=== PATIENT | female | born 1935 | race Caucasian/White ===

== ENCOUNTER 2020-10-29 09:33 | Inpatient (IN) ==
--- NOTE | 2020-10-29 09:57 | Emergency Department Note ---
SOB HPI General Chief Complaint: Shortness of Breath/Dyspnea Time Seen by Provider: 10/29/20 09:48 Source: patient, family, RN notes reviewed, old records reviewed and other ([facility] called [employer]) Mode of arrival: ambulatory Limitations: no limitations History of Present Illness HPI Narrative: Narrative: Very pleasant 85-year-old female complaining of increasing shortness of breath x10 days. She states that she is having extreme dyspnea on exertion and having difficulty walking to the car and she is now sleeping in a sitting upright position as she becomes very short of breath when she lays flat. She denies any fevers or chills any cough or any chest pain. States that 3 days prior to arrival she was attempting to ambulate and had a syncopal event where she fell down loss of consciousness is not known but she complains of swelling and pain to her left lower extremity. Shows noted on physical exam to have bilateral peripheral edema left greater than right she stated the swelling in her lower extremities approximately a week ago. Patient was seen at [facility] and the provider felt that the patient requires a higher level of care and requested her to come to the emergency department for further evaluation. MD Complaint: shortness of breath Onset (ago): day(s) (10) Context: occurred during exertion Severity: moderate Consistency/Duration: constant Improves with: rest and upright position Worsens with: lying flat, exertion and movement Associated symptoms: Reports orthopnea, lower extremity pain, palpitations and syncope (3 days [employer]); Denies chest pain, pain with inspiration, fever, cough, wheezing, sputum production, polyuria, polydipsia, parasthesias, carpopedal spasm, hemoptysis, diaphoresis, nausea/vomiting, abdominal pain, rash and sense of impending doom Treatment prior to arrival: none Related Data Home oxygen amount: none Home Medications Medication Instructions Recorded Confirmed No Known Home Meds 10/29/20 10/29/20 Allergies Allergy/AdvReac Type Severity Reaction Status Date / Time Penicillins Allergy Mild Unknown Verified 10/29/20 09:11 Tetanus Vaccines and Toxoid Allergy Mild Seizure Verified 10/29/20 09:11 Cephalosporins AdvReac Intermediate Diarrhea Verified 10/29/20 10:31 clindamycin AdvReac Intermediate Diarrhea Verified 10/29/20 10:31 Sulfa (Sulfonamide AdvReac Intermediate Other Verified 10/29/20 10:31 Antibiotics) ammonia AdvReac Unknown Unknown Verified 10/29/20 10:06 antipyrine AdvReac Unknown Unknown Verified 10/29/20 10:04 aztreonam AdvReac Unknown Unknown Verified 10/29/20 10:07 Bee Pollen AdvReac Unknown Unknown Verified 10/29/20 10:04 Carbapenems AdvReac Unknown Unknown Verified 10/29/20 10:04 celecoxib AdvReac Unknown Unknown Verified 10/29/20 10:04 dapsone AdvReac Unknown Unknown Verified 10/29/20 10:04 fomepizole AdvReac Unknown Unknown Verified 10/29/20 10:04 furosemide [From Lasix] AdvReac Unknown Unknown Verified 10/29/20 10:11 Influenza Virus Vaccines AdvReac Unknown Unknown Verified 10/29/20 10:04 iodine AdvReac Unknown Unknown Verified 10/29/20 10:04 Macrolide Antibiotics AdvReac Unknown Unknown Verified 10/29/20 10:11 morphine AdvReac Unknown Unknown Verified 10/29/20 10:04 NSAIDS (Non-Steroidal AdvReac Unknown Unknown Verified 10/29/20 10:04 Anti-Inflamma pimecrolimus AdvReac Unknown Unknown Verified 10/29/20 10:04 rofecoxib AdvReac Unknown Unknown Verified 10/29/20 10:04 royal jelly AdvReac Unknown Unknown Verified 10/29/20 10:04 saccharin AdvReac Unknown Unknown Verified 10/29/20 10:04 salicylates AdvReac Unknown Unknown Verified 10/29/20 10:04 sirolimus AdvReac Unknown Unknown Verified 10/29/20 10:04 Sulfinpyrazone AdvReac Unknown Unknown Verified 10/29/20 10:04 Sulfonylureas AdvReac Unknown Unknown Verified 10/29/20 10:04 sumatriptan AdvReac Unknown Unknown Verified 10/29/20 10:12 tacrolimus AdvReac Unknown Unknown Verified 10/29/20 10:04 Thiazides AdvReac Unknown Unknown Verified 10/29/20 10:04 thyroid, pork AdvReac Unknown Unknown Verified 10/29/20 10:04 "Statins" Allergy Mild GI Uncoded 10/29/20 09:11 Vaccines Allergy Mild Swelling Uncoded 10/29/20 09:11 Review of Systems ROS ROS Narrative: Narrative: Constitutional: Reports weakness and weight change; Denies fever and chills Eyes: Denies vision change ENT ED: Denies throat pain Cardiovascular: Denies chest pain Respiratory: Reports shortness of breath Gastrointestinal: Denies abdominal pain Genitourinary: Denies dysuria Musculoskeletal: Reports joint swelling and joint pain; Denies back pain Integumentary: Denies rash Neurological: Denies headache Psychiatric: Denies depression Endocrine: Denies fatigue Hematological/Lymphatic: Denies easy bruising Allergic/Immunologic: Denies urticaria PFSH Narrative Patient History Narrative: Narrative: Medical/Surgical/Family History All Active Problems (Updated 10/29/20 @ 11:30 by Irvin Ny MD) Pleural effusion (Acute) Swelling (Acute) Shortness of breath (Acute) Congestive heart failure (Acute) Medical History Congestive heart failure Shortness of breath Swelling Social History Smoking Status: Never smoker Exam Narrative Narrative: Narrative: General Limitations: no limitations General appearance: Present alert and in no apparent distress Head Head: Present atraumatic and normocephalic Eye Eye: Present normal appearance, PERRL and EOMI ENT ENT: Present normal exam and mucous membranes moist Neck Neck: Present full ROM and other (JVD) Chest Chest: Present normal inspection; Absent tenderness Respiratory Respiratory: Present rales/crackles and decreased breath sounds (LLL); Absent respiratory distress Cardiovascular Cardiovascular: Present regular rate, normal rhythm and systolic murmur Adbominal Abdominal: Present soft; Absent distention, tenderness, guarding and rebound Extremities Extremities: Present full ROM, tenderness, pedal edema, pretibial edema and other (LLE more swollen and tender than RLE) Back Back: Present normal inspection; Absent CVA tenderness (R) and CVA tenderness (L) Neurological Neurological: Present alert and oriented X3 Psychiatric Psychiatric: Present normal affect and normal mood Skin Skin: Present warm (WNL); Absent rash Course Vital Signs Vital signs: Vital Signs Pulse Oximetry (%) 88 L 10/29/20 09:33 Temperature 98.5 F 10/29/20 09:41 Pulse Rate 88 10/29/20 12:21 Respiratory Rate 27 H 10/29/20 12:21 Blood Pressure 171/83 10/29/20 12:21 Pulse Oximetry (%) 99 10/29/20 12:21 [facility] Narrative Medical decision making narrative: Narrative: 85-year-old female with hypoxia with exertion orthopnea PND and peripheral edema complaining of shortness of breath. Patient also has swelling to bilateral lower extremities left greater than right. Differential diagnosis includes congestive heart failure, PE, DVT, ankle fracture, ankle sprain, ACS, pneumonia, pneumothorax, pleural effusion. Medical Records Medical records reviewed: Yes I reviewed the patient's medical records. Lab Data Lab results reviewed: Yes I reviewed the patient's lab results. Result diagrams: 10/29/20 10:05 10/29/20 10:05 Labs: Lab Results 10/29/20 10/29/20 10/29/20 Range/Units 10:05 10:05 10:05 WBC 9.0 (4.5-11.0) K/mcL RBC 4.92 (4.00-5.20) M/mcL Hgb 14.3 (12.0-15.0) g/dL Hct 44.2 (36.0-48.0) % MCV 89.8 (80.0-100.0) fL MCH 29.1 (26.0-34.0) pg MCHC 32.4 (31.0-36.0) g/dL RDW 12.6 (11.5-14.5) % Plt Count 313 (140-440) K/mcL MPV 9.0 (7.4-10.4) fL Neut % (Auto) 76.6 (38.0-78.0) % Lymph % (Auto) 10.3 L (15.0-49.0) % [place] % (Auto) 11.4 (1.0-12.0) % Eos % (Auto) 1.0 (0.0-7.0) % Baso % (Auto) 0.7 (0.0-2.0) % Lymph # (Auto) 0.93 L (1.50-4.80) K/mcL [place] # (Auto) 1.03 H (0.10-0.90) K/mcL Eos # (Auto) 0.09 (0.00-0.70) K/mcL Baso # (Auto) 0.06 (0.00-0.20) K/mcL Absolute Neutrophils 6.89 (1.80-8.00) K/mcL Sodium 131 L (133-145) mmol/L Potassium 3.9 (3.3-5.1) mmol/L Chloride 99 (96-108) mmol/L Carbon Dioxide 26 (22-30) mmol/L Anion Gap 6.0 L (8.0-16.0) BUN 15 (8-23) mg/dL Creatinine 1.0 (0.6-1.1) mg/dL GFR Calculation 52 Glucose 199 H (70-105) mg/dL Calcium 9.8 (8.6-10.4) mg/dL Total Bilirubin 0.3 (0.1-1.0) mg/dL AST 15 (<32) U/L ALT 10 (<40) U/L Alkaline Phosphatase 88 (39-117) U/L Troponin T < 0.01 (<0.03) ng/mL NT-Pro-B Natriuret Pep 438.2 (<450.0) pg/mL Total Protein 7.0 (5.9-8.4) gm/dL Albumin 3.7 (3.2-5.2) gm/dL Globulin 3.3 (2.2-3.7) gm/dL Albumin/Globulin Ratio 1.1 (1.0-2.3) Urine Color Urine Appearance (Clear) Urine pH (5.0-9.0) Ur Specific [place] (1.000-1.035) Urine Protein (Negative) mg/dL Urine Glucose (UA) (Negative) mg/dL Urine Ketones (Negative) mg/dL Urine Occult Blood (Negative) mg/dL Urine Nitrate (Negative) Urine Bilirubin (Negative) mg/dL Urine Urobilinogen mg/dL Ur Leukocyte Esterase (Negative) /ug Ur Culture Indicated? 10/29/20 Range/Units 10:50 WBC (4.5-11.0) K/mcL RBC (4.00-5.20) M/mcL Hgb (12.0-15.0) g/dL Hct (36.0-48.0) % MCV (80.0-100.0) fL MCH (26.0-34.0) pg MCHC (31.0-36.0) g/dL RDW (11.5-14.5) % Plt Count (140-440) K/mcL MPV (7.4-10.4) fL Neut % (Auto) (38.0-78.0) % Lymph % (Auto) (15.0-49.0) % [place] % (Auto) (1.0-12.0) % Eos % (Auto) (0.0-7.0) % Baso % (Auto) (0.0-2.0) % Lymph # (Auto) (1.50-4.80) K/mcL [place] # (Auto) (0.10-0.90) K/mcL Eos # (Auto) (0.00-0.70) K/mcL Baso # (Auto) (0.00-0.20) K/mcL Absolute Neutrophils (1.80-8.00) K/mcL Sodium (133-145) mmol/L Potassium (3.3-5.1) mmol/L Chloride (96-108) mmol/L Carbon Dioxide (22-30) mmol/L Anion Gap (8.0-16.0) BUN (8-23) mg/dL Creatinine (0.6-1.1) mg/dL GFR Calculation Glucose (70-105) mg/dL Calcium (8.6-10.4) mg/dL Total Bilirubin (0.1-1.0) mg/dL AST (<32) U/L ALT (<40) U/L Alkaline Phosphatase (39-117) U/L Troponin T (<0.03) ng/mL NT-Pro-B Natriuret Pep (<450.0) pg/mL Total Protein (5.9-8.4) gm/dL Albumin (3.2-5.2) gm/dL Globulin (2.2-3.7) gm/dL Albumin/Globulin Ratio (1.0-2.3) Urine Color Yellow Urine Appearance Clear (Clear) Urine pH 6.0 (5.0-9.0) Ur Specific [place] 1.009 (1.000-1.035) Urine Protein Negative (Negative) mg/dL Urine Glucose (UA) 50 A (Negative) mg/dL Urine Ketones Negative (Negative) mg/dL Urine Occult Blood Negative (Negative) mg/dL Urine Nitrate Negative (Negative) Urine Bilirubin Negative (Negative) mg/dL Urine Urobilinogen Negative mg/dL Ur Leukocyte Esterase Negative (Negative) /ug Ur Culture Indicated? No ED POC Tests ED POC Tests: MERLINE - SARS Antigen Negative Radiology Data Radiology results reviewed: Yes I reviewed the patient's radiology results. Radiology results narrative: Chest x-ray with large pleural effusion on the left side. Negative Doppler of the left lower extremity negative x-ray of the left ankle EKG Data EKG #1: EKG attestation: Yes I reviewed and interpreted this EKG. EKG shows normal: sinus rhythm Rate: normal (92) [place]/QRS: normal Heart block present: None ST segment elevation in: None ST segment depression in: None Q waves: III, v1 and v2 T wave inversions noted in: v1 When compared to previous EKG there are: previous EKG unavailable Interpretation: nonspecific ST-T wave changes Pulse Oximetry Data Pulse Ox %: 88 Interpretation: 88% on room air with exertion this is hypoxic for this patient. Discharge Plan Patient/Caregiver Discharge Instructions Pt seen by CHIEF COUNSEL/PA only: No Clinical Impression: Pleural effusion, Shortness of breath Patient Disposition: Xfer As Inpt ([facility]) Follow up with: No,PCP [Primary Care Provider] - Prescriptions: No Action No Known Home Meds RF: 0
--- NOTE | 2020-10-29 10:38 | XRay Report ---
HISTORY: Short of breath FINDINGS: There is a large left-sided pleural effusion causing atelectasis of the left lower lobe and inferior portion of the lingula. There is a small right-sided pleural effusion. There is a vague hazy infiltrate above the right diaphragm. The heart is largely obscured by the consolidation in the left thorax. These are all new findings since prior x-ray done on 12/20/12. There is a clip in the right lateral chest wall below the axilla, possibly in the breast. IMPRESSION: Large left-sided pleural effusion causing atelectasis Interpreted and Authenticated by: Gabino Lindquist 10/29/20
--- NOTE | 2020-10-29 10:39 | XRay Report ---
HISTORY: Left ankle pain and swelling after a fall FINDINGS: Large amount of soft tissue swelling surrounds the ankle. There is no fracture or dislocation. Ankle joint space is normal in width and there is no arthritis in the joint. There are large calcaneal spurs. Numerous calcified phleboliths are present in the lower calf. IMPRESSION: soft tissue swelling and no fracture Interpreted and Authenticated by: Gabino Lindquist 10/29/20
[2020-10-29 10:56] LABS: Basophils # (Auto) 0.06 K/mcL (0.00-0.20); Basophils % (Auto) 0.7 % (0.0-2.0); Eosinophils # (Auto) 0.09 K/mcL (0.00-0.70); Hematocrit 44.2 % (36.0-48.0); Hemoglobin 14.3 g/dL (12.0-15.0); Lymphocytes # (Auto) 0.93 K/mcL (1.50-4.80); Lymphocytes % (Auto) 10.3 % (15.0-49.0); Mean Cell Volume 89.8 fL (80.0-100.0); Mean Corpuscular HGB Conc 32.4 g/dL (31.0-36.0); Monocytes # (Auto) 1.03 K/mcL (0.10-0.90); Monocytes % (Auto) 11.4 % (1.0-12.0); Neutrophils % (Auto) 76.6 % (38.0-78.0); Platelet Count 313 K/mcL (140-440); RBC 4.92 M/mcL (4.00-5.20); Red Cell Distribution Width 12.6 % (11.5-14.5)
--- NOTE | 2020-10-29 11:01 | Ultrasound Report ---
History: Left leg pain and swelling, shortness of breath FINDINGS: There is normal augmentation and compressibility of the deep veins and saphenous vein from the groin to the upper calf. There is significant edema in the subcutaneous tissues in the mid and lower calf which limits our ability to visualize the small peripheral calf veins. Doppler shows normal waveform patterns. The visualized portions of the calf veins are normal. IMPRESSION: No evidence of deep venous thrombosis. However, the lower calf is difficult to evaluate due to subcutaneous edema Interpreted and Authenticated by: Gabino Lindquist 10/29/20
[2020-10-29 11:18] LABS: proBNP 438.2 pg/mL (<450.0)
[2020-10-29 11:19] LABS: ALT/SGPT 10 U/L (<40); AST/SGOT 15 U/L (<32); Albumin 3.7 gm/dL (3.2-5.2); Albumin/Globulin Ratio 1.1 (1.0-2.3); Alkaline Phosphatase 88 U/L (39-117); Bilirubin,Total 0.3 mg/dL (0.1-1.0); Blood Urea Nitrogen 15 mg/dL (8-23); Calcium 9.8 mg/dL (8.6-10.4); Carbon Dioxide 26 mmol/L (22-30); Chloride 99 mmol/L (96-108); Globulin 3.3 gm/dL (2.2-3.7); Glomerular Filtration Rate 52; Glucose 199 mg/dL (70-105)
[2020-10-29] MEDS ORDERED: BUMETANIDE 0.25 MG/ML VIAL IV ONE (11:26)
[2020-10-29 12:09] LABS: Appearance,Urine CLEAR (Clear); Bilirubin,Urine Negative (Negative); Color,Urine YELLOW; Culture Indicated,Urine No; Glucose,Urine (UA) 50 mg/dL (Negative); Ketones,Urine Negative (Negative); Leukocyte Esterase,Urine Negative /ug (Negative); Nitrate,Urine Negative (Negative); Protein,Urine Negative (Negative); Specific Gravity,Urine 1.009 (1.000-1.035); Urine Blood Negative (Negative); Urobilinogen,Urine Negative
[2020-10-29 12:45] LABS: Prothrombin Time 13.9 sec (11.9-14.5)
[2020-10-29] MEDS ORDERED: ACETAMINOPHEN 325 MG TABLET PO PRN ×2 (12:46→15:18)
[2020-10-29] MEDS ORDERED: traZODone HCL 50 MG TABLET PO PRN ×2 (12:46→15:18)
[2020-10-29] MEDS ORDERED: ONDANSETRON 4 MG/2 ML VIAL IV PRN ×2 (12:46→15:18)
[2020-10-29] MEDS ORDERED: hydrALAZINE 20 MG/ML VIAL IV PRN ×2 (12:53→15:18)
[2020-10-29] MEDS ORDERED: DEXTROSE 50% 50 ML VIAL IV PRN ×2 (12:53→15:18)
[2020-10-29] MEDS ORDERED: DEXTROSE 31 GM ORAL.SUSP PO PRN ×2 (12:53→15:18)
--- NOTE | 2020-10-29 13:01 | Internal Med History&Physical ---
HPI History of Present Illness Patient information: Note initiated : 10/29/20 at 12:54 pm Service Date, if different from initiated Date: [] Patient: Ails Vogel 85 y/o F admitted on for Shortness of breath. Chief Complaint: [shortness of breath, orthopnea] History of present illness: Ms. Vogel is a 85 year old F history of type 2 diabetes mellitus, diet controlled, right breast cancer status post surgical resections, presented with 1 week history of orthopnea and shortness of breath. There was no prior similar history. Over the past week, patient has developed acute onset, gradually worsening orthopnea to the point that she had to sleep on a recliner. She is also developing shortness of breath. In addition, she has been noticing swelling of her bilateral lower extremities, left greater than right, up to at least the knee left foot. She has also been gaining between 5 to 10 pounds unintentionally over the set period of time. She denies any cough, sputum productions, or respiratory wheezings. Patient denies any fever, shaking chills, or diaphoresis. Only to her symptoms, she decided to come to our ED for further evaluation and treatment. Vital signs significant for borderline elevated blood pressure hospitalist tachypnea with rate of breathing due to mid 20s beats per minute. Rest of vital signs within normal limits. Labs significant for lack of leukocytosis, as well as elevated BNP to the 400s. Chest x-ray significant for lack of any parenchymal infiltrates, as well as a large left sided pleural effusions. Venous Doppler ultrasound bilateral lower extremities showing absence of any DVT. Constitutional Constitutional: Absent chills, excessive sweating, fatigue, fever(s) and weakness EENT Eyes: Absent blurry vision, change in vision, loss of vision and other visual disturbances Ears: Absent decreased hearing and tinnitus Nose, mouth and throat: Absent abnormal hearing, dry mouth, headache(s), nasal congestion and sore throat Cardiovascular Cardiovascular: Present edema (right>left legs edema up to knees ); Absent chest pain, chest pain at rest, irregular heart rhythm and palpatations Respiratory Respiratory: Present dyspnea on exertion; Absent cough, dyspnea and wheezing Additional comments: orthopnea shortness of breath Gastrointestinal Gastrointestinal: Absent abdominal pain, constipation, diarrhea, nausea and vomiting Musculoskeletal Musculoskeletal: Absent back pain, deformity, limited range of motion, muscle cramps, muscle weakness and numbness Additional comments: Left>right leg edema Integumentary Integumentary: Absent lesions, rash and wounds Neurological Neurological: Absent focal weakness, headache(s) and numbness Psychiatric Psychiatric: Absent anxiety, depression and hallucinations PFSH PFSH All Active Problems (Updated 10/29/20 @ 13:13 by Maynor Hardin MD) Pleural effusion, left (Acute) Hyponatremia (Acute) Essential (primary) hypertension (Acute) Type 2 diabetes mellitus (Acute) CHF exacerbation (Acute) Pleural effusion (Acute) Swelling (Acute) Shortness of breath (Acute) Congestive heart failure (Acute) Medical History Congestive heart failure Shortness of breath Swelling MEDS/ALLERGIES Home Medications and Allergies Home Medications Medication Instructions Recorded Confirmed Type No Known Home Meds 10/29/20 10/29/20 History Allergies Allergy/AdvReac Type Severity Reaction Status Date / Time Penicillins Allergy Mild Unknown Verified 10/29/20 09:11 Tetanus Vaccines and Toxoid Allergy Mild Seizure Verified 10/29/20 09:11 Cephalosporins AdvReac Intermediate Diarrhea Verified 10/29/20 10:31 clindamycin AdvReac Intermediate Diarrhea Verified 10/29/20 10:31 Sulfa (Sulfonamide AdvReac Intermediate Other Verified 10/29/20 10:31 Antibiotics) ammonia AdvReac Unknown Unknown Verified 10/29/20 10:06 antipyrine AdvReac Unknown Unknown Verified 10/29/20 10:04 aztreonam AdvReac Unknown Unknown Verified 10/29/20 10:07 Bee Pollen AdvReac Unknown Unknown Verified 10/29/20 10:04 Carbapenems AdvReac Unknown Unknown Verified 10/29/20 10:04 celecoxib AdvReac Unknown Unknown Verified 10/29/20 10:04 dapsone AdvReac Unknown Unknown Verified 10/29/20 10:04 fomepizole AdvReac Unknown Unknown Verified 10/29/20 10:04 furosemide [From Lasix] AdvReac Unknown Unknown Verified 10/29/20 10:11 Influenza Virus Vaccines AdvReac Unknown Unknown Verified 10/29/20 10:04 iodine AdvReac Unknown Unknown Verified 10/29/20 10:04 Macrolide Antibiotics AdvReac Unknown Unknown Verified 10/29/20 10:11 morphine AdvReac Unknown Unknown Verified 10/29/20 10:04 NSAIDS (Non-Steroidal AdvReac Unknown Unknown Verified 10/29/20 10:04 Anti-Inflamma pimecrolimus AdvReac Unknown Unknown Verified 10/29/20 10:04 rofecoxib AdvReac Unknown Unknown Verified 10/29/20 10:04 royal jelly AdvReac Unknown Unknown Verified 10/29/20 10:04 saccharin AdvReac Unknown Unknown Verified 10/29/20 10:04 salicylates AdvReac Unknown Unknown Verified 10/29/20 10:04 sirolimus AdvReac Unknown Unknown Verified 10/29/20 10:04 Sulfinpyrazone AdvReac Unknown Unknown Verified 10/29/20 10:04 Sulfonylureas AdvReac Unknown Unknown Verified 10/29/20 10:04 sumatriptan AdvReac Unknown Unknown Verified 10/29/20 10:12 tacrolimus AdvReac Unknown Unknown Verified 10/29/20 10:04 Thiazides AdvReac Unknown Unknown Verified 10/29/20 10:04 thyroid, pork AdvReac Unknown Unknown Verified 10/29/20 10:04 "Statins" Allergy Mild GI Uncoded 10/29/20 09:11 Vaccines Allergy Mild Swelling Uncoded 10/29/20 09:11 EXAM Constitutional Vitals: Temp Pulse Resp BP Pulse Ox 36.9 C 88 27 H 171/83 99 10/29/20 09:41 10/29/20 12:21 10/29/20 12:21 10/29/20 12:21 10/29/20 12:21 General appearance: cooperative and no acute distress Head Head exam: Present atraumatic and normocephalic Eye Eye exam: Present EOMI and PERRL ENT ENT exam: Present mucous membranes moist, normal exam and normal external ear exam Additional comments: Nasal cannula in place Neck Neck exam: Present normal inspection; Absent lymphadenopathy, tenderness and thyromegaly Respiratory Respiratory exam: Present decreased breath sounds (left lung base); Absent accessory muscle use, respiratory distress and wheezes Cardiovascular Cardiovascular exam: Present normal rate and rhythm; Absent JVD GI/Abdominal GI/Abdominal exam: Present normal bowel sounds and soft; Absent organomegaly and tenderness Extremities Exam Extremities exam: Present full ROM, normal capillary refill, normal inspection and pedal edema; Absent tenderness Neurological Exam Neurological exam: Present alert, CN II-XII intact and oriented X3; Absent motor sensory deficit Psychiatric Psychiatric exam: Present normal affect and normal mood; Absent anxious and depressed Skin Skin exam: Present dry and intact DATA Data Completed and Pending Labs: Labs from last 24 hours 10/29/20 10/29/20 10/29/20 10:50 10:05 10:05 WBC RBC Hgb Hct MCV MCH MCHC RDW Plt Count MPV Neut % (Auto) Lymph % (Auto) [place] % (Auto) Eos % (Auto) Baso % (Auto) Lymph # (Auto) [place] # (Auto) Eos # (Auto) Baso # (Auto) Absolute Neutrophils PT 13.9 INR 1.0 Sodium Potassium Chloride Carbon Dioxide Anion Gap BUN Creatinine GFR Calculation Glucose Calcium Total Bilirubin AST ALT Alkaline Phosphatase Troponin T < 0.01 NT-Pro-B Natriuret Pep Total Protein Albumin Globulin Albumin/Globulin Ratio Urine Color Yellow Urine Appearance Clear Urine pH 6.0 Ur Specific [place] 1.009 Urine Protein Negative Urine Glucose (UA) 50 A Urine Ketones Negative Urine Occult Blood Negative Urine Nitrate Negative Urine Bilirubin Negative Urine Urobilinogen Negative Ur Leukocyte Esterase Negative Ur Culture Indicated? No 10/29/20 10/29/20 10:05 10:05 WBC 9.0 RBC 4.92 Hgb 14.3 Hct 44.2 MCV 89.8 MCH 29.1 MCHC 32.4 RDW 12.6 Plt Count 313 MPV 9.0 Neut % (Auto) 76.6 Lymph % (Auto) 10.3 L [place] % (Auto) 11.4 Eos % (Auto) 1.0 Baso % (Auto) 0.7 Lymph # (Auto) 0.93 L [place] # (Auto) 1.03 H Eos # (Auto) 0.09 Baso # (Auto) 0.06 Absolute Neutrophils 6.89 PT INR Sodium 131 L Potassium 3.9 Chloride 99 Carbon Dioxide 26 Anion Gap 6.0 L BUN 15 Creatinine 1.0 GFR Calculation 52 Glucose 199 H Calcium 9.8 Total Bilirubin 0.3 AST 15 ALT 10 Alkaline Phosphatase 88 Troponin T NT-Pro-B Natriuret Pep 438.2 Total Protein 7.0 Albumin 3.7 Globulin 3.3 Albumin/Globulin Ratio 1.1 Urine Color Urine Appearance Urine pH Ur Specific [place] Urine Protein Urine Glucose (UA) Urine Ketones Urine Occult Blood Urine Nitrate Urine Bilirubin Urine Urobilinogen Ur Leukocyte Esterase Ur Culture Indicated? A/P Assessment and plan (1) CHF exacerbation: Status: Acute (2) Type 2 diabetes mellitus: Status: Acute (3) Essential (primary) hypertension: Status: Acute (4) Hyponatremia: Status: Acute (5) Pleural effusion, left: Status: Acute Narrative A/P Narrative: Assessment and Plans: 1. CHF with exacerbation: Admit to inpatient med surg 2D echocardiogram fluid restriction 2L/day Daily weigh Intake and output Lasix 20mg IV BID Lisinopril 10mg PO daily Hold beta jb at exacerbation phase of CHF Supplemental oxygen titrate to achieve O2 sat >=92% Saline lock 2. Left large pleural effusion: INR Diagnostic and therapeutic left thoracentesis Fluid analysis: LDH Glucose Albumin Total protein Cytology Gram stain and culture Cell count and diff Repeat CXR in AM to make sure resolution 3. T2DM: HgA1c Hold oral hypoglycmics Low dose sliding scale insulin AC HS Accu Chek AC HS Hypoglycemia protocol Diabetic diet 4. Essential HTN: Lasix 20mg IV BID Lisinopril 10mg PO daily Hold beta jb at exacerbation phase of CHF Hydralazine 10mg IV q4hr PRN SBP>=180 and or DBP>=110 5. Hyponatremia: Saline lock Repeat CMP in the AM to trend serum sodium level PT OT evaluation and treatment SCDs Time Spent With Patient Time: Total time spent is greater than 50% in coordination of care (as documented) at patient's floor/unit and/or counseling patient:
[2020-10-29] MEDS ORDERED: 0.9 % SODIUM CHLORIDE 10 ML SYRINGE IV SCH (14:00)
[2020-10-29 15:41] LABS: Hemoglobin A1C 7.2 % Hgb (4.0-6.0)
[2020-10-29] MEDS ORDERED: FUROSEMIDE 20 MG/2 ML VIAL IV SCH ×2 (16:00→21:00)
[2020-10-29] MEDS: 0.9 % SODIUM CHLORIDE 10 ML SYRINGE IV SCH ×2 (16:18→21:08)
[2020-10-29] MEDS: INSULIN LISPRO 1 UNIT/0.01 ML UNIT SQ SCH ×2 (16:25→21:08)
[2020-10-29] MEDS ORDERED: INSULIN LISPRO 1 UNIT/0.01 ML UNIT SQ SCH (17:00)
--- NOTE | 2020-10-29 18:13 | XRay Report ---
HISTORY: Post left-sided thoracentesis FINDINGS: There is no pneumothorax following the preceding left-sided thoracentesis. There is still a moderate amount of residual pleural fluid in the left thorax but much of it has been drained. This has allowed for partial re-aeration of the lingula and left lower lobe. Small subpulmonic pleural effusion is present on the right. IMPRESSION: No complication following left-sided thoracentesis Interpreted and Authenticated by: Gabino Lindquist 10/29/20
--- NOTE | 2020-10-29 18:14 | Ultrasound Report ---
CLINICAL INFORMATION: Left-sided pleural effusion TECHNIQUE: The procedure and risks were explained and the patient consented. The skin over the left side of the back was prepped with ChloraPrep then anesthetized with 1% lidocaine. Using ultrasound guidance a multi sidehole drainage catheter was inserted. 850 cc of blood-tinged pleural fluid was removed. The fluid stopped draining spontaneously. There is still residual fluid in the chest. She began coughing and the procedure was then terminated. Some of the fluid was sent to laboratory for analysis. IMPRESSION: Successful left-sided thoracentesis removing 850 cc of fluid Interpreted and Authenticated by: Gabino Lindquist 10/29/20
[2020-10-29 19:23] LABS: Total Protein,Pleural Fluid 4.4 gm/dL
[2020-10-29 20:31] LABS: Appearance,Pleural Fluid Cloudy; Color,Pleural Fluid Orange; Lymphocytes,Pleural Fluid 60 %; Mesothelial,Pleural Fluid 19 %; Monocytes,Pleural Fluid 20 %; Neutrophils,Pleural Fluid 1 %; Nucleated Cells,Pleural Fld 1219 /cumm
[2020-10-29] MEDS ORDERED: SENNOSIDES 1 TABLET PO SCH (21:00)
[2020-10-29] MEDS ORDERED: DOCUSATE SODIUM 100 MG CAPSULE PO SCH (21:00)
[2020-10-29] MEDS: DOCUSATE SODIUM 100 MG CAPSULE PO SCH (21:08)
[2020-10-29] MEDS: SENNOSIDES 1 TABLET PO SCH (21:08)
[2020-10-29] MEDS: BUMETANIDE 0.25 MG/ML VIAL IV SCH (21:09)
[2020-10-30] MEDS: 0.9 % SODIUM CHLORIDE 10 ML SYRINGE IV SCH ×3 (06:03→20:14)
[2020-10-30] MEDS: INSULIN LISPRO 1 UNIT/0.01 ML UNIT SQ SCH ×4 (07:15→20:13)
[2020-10-30 08:24] LABS: Basophils # (Auto) 0.05 K/mcL (0.00-0.20); Basophils % (Auto) 0.5 % (0.0-2.0); Eosinophils # (Auto) 0.13 K/mcL (0.00-0.70); Eosinophils % (Auto) 1.3 % (0.0-7.0); Hematocrit 42.5 % (36.0-48.0); Hemoglobin 13.4 g/dL (12.0-15.0); Lymphocytes # (Auto) 1.14 K/mcL (1.50-4.80); Lymphocytes % (Auto) 11.6 % (15.0-49.0); Mean Cell Volume 90.4 fL (80.0-100.0); Mean Corpuscular HGB Conc 31.5 g/dL (31.0-36.0); Mean Platelet Volume 9.2 fL (7.4-10.4); Monocytes # (Auto) 1.43 K/mcL (0.10-0.90); Monocytes % (Auto) 14.6 % (1.0-12.0); Platelet Count 323 K/mcL (140-440); Red Cell Distribution Width 12.7 % (11.5-14.5); WBC 9.8 K/mcL (4.5-11.0)
[2020-10-30] MEDS ORDERED: LISINOPRIL 10 MG TABLET PO SCH (09:00)
[2020-10-30 09:07] LABS: ALT/SGPT 8 U/L (<40); AST/SGOT 14 U/L (<32); Albumin 3.2 gm/dL (3.2-5.2); Albumin/Globulin Ratio 1.1 (1.0-2.3); Alkaline Phosphatase 76 U/L (39-117); Bilirubin,Total 0.3 mg/dL (0.1-1.0); Blood Urea Nitrogen 18 mg/dL (8-23); Calcium 9.7 mg/dL (8.6-10.4); Carbon Dioxide 30 mmol/L (22-30); Chloride 100 mmol/L (96-108); Globulin 2.8 gm/dL (2.2-3.7); Glomerular Filtration Rate 38; Glucose 170 mg/dL (70-105)
[2020-10-30] MEDS: BUMETANIDE 0.25 MG/ML VIAL IV SCH (09:48)
[2020-10-30] MEDS: LISINOPRIL 10 MG TABLET PO SCH (09:48)
[2020-10-30] MEDS: DOCUSATE SODIUM 100 MG CAPSULE PO SCH ×2 (09:48→20:13)
--- NOTE | 2020-10-30 09:54 | XRay Report ---
HISTORY: Short of breath, follow-up left-sided pleural effusion FINDINGS: There is a stable moderate-sized residual left-sided pleural effusion following yesterday's thoracentesis. There is partial atelectasis of the lingula and left lower lobes. Left upper lobe is clear. There is no pneumothorax. Right lung is clear. There is a small right-sided pleural effusion. Comparison with the prior postthoracentesis chest x-ray done on 10/29/20 shows no change. IMPRESSION: Stable residual left-sided pleural effusion with partial atelectasis in the lingula and left lower lobe. Interpreted and Authenticated by: Gabino Lindquist 10/30/20
--- NOTE | 2020-10-30 17:28 | Internal Med Progress Note ---
SUBJECTIVE Subjective Patient information: Note initiated : 10/30/20 at 5:23 pm Service Date, if different from initiated Date: [] Patient: Alis Vogel 85 y/o F admitted on 10/29/20 for Shortness of breath. Chief Complaint: [CHF exacerbation and left pleural effusion] Overnight: s/p left thoracentesis with 850ml pleural fluid removed. Been on 2L/min supplemental oxygen via nasal cannula. Subjective: mild SOB. Denies cough, wheezing, or sputum production. Denies chest pain. Denies fever or chills or sweating. Constitutional Vitals: Vital Signs Temp Pulse Resp BP Pulse Ox 36.7 C 93 H 20 116/63 96 10/30/20 12:00 10/30/20 12:00 10/30/20 12:00 10/30/20 12:00 10/30/20 12:00 Period Temp Pulse Resp BP Sys/Campbell Pulse Ox Last 24 Hr 36.6 C-36.7 C 85-110 20-24 116-140/63-75 92-96 Intake and Output 10/30/20 10/30/20 10/30/20 05:59 13:59 21:59 Intake Total 250 200 600 Output Total 650 925 150 Balance -400 -725 450 Weight 82.781 kg Patient Weight 10/31/20 05:59 Weight 82.781 kg Intake & Output: Intake & Output 10/30/20 10/30/20 10/30/20 05:59 13:59 21:59 Intake Total 250 200 600 Output Total 650 925 150 Balance -400 -725 450 Weight 82.781 kg Intake: Oral 250 200 600 Output: Void Amount 650 925 150 Other: Urine Appearance Clear Clear Clear Urine Color Bright Yellow Straw Straw Urine Odor Normal Normal Stool Size Small Stool Color Brown Stool Consistency Soft # Bowel Movements 1 General appearance: cooperative and no acute distress Head Head exam: Present atraumatic and normocephalic Eye Eye exam: Present EOMI and PERRL ENT ENT exam: Present mucous membranes moist, normal exam and normal external ear exam Additional comments: Nasal cannula in place. Neck Neck exam: Present normal inspection; Absent lymphadenopathy, tenderness and thyromegaly Respiratory Respiratory exam: Absent accessory muscle use, respiratory distress and wheezes Additional comments: Slightly decreased breath sound in left lung base Crackles in rest of the lung king. Cardiovascular Cardiovascular exam: Present normal rate and rhythm; Absent JVD GI/Abdominal GI/Abdominal exam: Present normal bowel sounds and soft; Absent organomegaly and tenderness Extremities Exam Extremities exam: Present full ROM, normal capillary refill, normal inspection and pedal edema; Absent tenderness Additional comments: 2+ pitting edema bilateral lower extremities up to knees. Neurological Exam Neurological exam: Present alert, CN II-XII intact and oriented X3; Absent motor sensory deficit Psychiatric Psychiatric exam: Present normal affect and normal mood; Absent anxious and depressed Skin Skin exam: Present dry and intact OBJ DATA Labs CBC & Chem 7: 10/30/20 06:00 10/30/20 06:00 Labs: Abnormal Lab Results 10/30/20 10/30/20 10/29/20 06:00 06:00 17:45 Lymph % (Auto) 11.6 L [place] % (Auto) 14.6 H Lymph # (Auto) 1.14 L [place] # (Auto) 1.43 H Sodium Anion Gap 7.0 L Creatinine 1.3 H Glucose 170 H Hemoglobin A1c Urine Glucose (UA) Pleural LDH 191 H 10/29/20 10/29/20 10/29/20 10:50 10:05 10:05 Lymph % (Auto) [place] % (Auto) Lymph # (Auto) [place] # (Auto) Sodium 131 L Anion Gap 6.0 L Creatinine Glucose 199 H Hemoglobin A1c 7.2 H Urine Glucose (UA) 50 A Pleural LDH 10/29/20 10:05 Lymph % (Auto) 10.3 L [place] % (Auto) Lymph # (Auto) 0.93 L [place] # (Auto) 1.03 H Sodium Anion Gap Creatinine Glucose Hemoglobin A1c Urine Glucose (UA) Pleural LDH Meds: Medications Acetaminophen (Acetaminophen 325 Mg Tablet) 650 mg PO Q6HP PRN; Protocol PRN Reason: Per Pain Protocol/Fever > 101 Dextrose (Dextrose 50% 50 Ml Vial) 0 ml IV UD PRN PRN Reason: Hypoglycemia Diagnostic Test (Pha) (Accu-Chek 1 Each Strip) 1 each FS ACHS [facility] Last Admin: 10/30/20 16:33 Dose: 1 each Documented by: Docusate Sodium (Docusate Sodium 100 Mg Capsule) 100 mg PO BID [facility] Last Admin: 10/30/20 09:48 Dose: Not Given Documented by: Glucose (Dextrose 31 Gm Oral.Susp) 15 gm PO PRN PRN PRN Reason: Hypoglycemia Hydralazine HCl (Hydralazine 20 Mg/Ml Vial) 10 mg IV Q4-6HP PRN PRN Reason: Hypertension Insulin Human Lispro (Insulin Lispro 1 Unit/0.01 Ml Unit) 0 unit SQ ACHS [facility]; Protocol Last Admin: 10/30/20 16:34 Dose: Not Given Documented by: Lisinopril (Lisinopril 10 Mg Tablet) 10 mg PO DAILY [facility] Last Admin: 10/30/20 09:48 Dose: Not Given Documented by: Ondansetron HCl (Ondansetron 4 Mg/2 Ml Vial) 4 mg IV Q6HP PRN PRN Reason: Nausea And Vomiting Senna (Sennosides 1 Tablet) 2 tab PO HS [facility] Last Admin: 10/29/20 21:08 Dose: Not Given Documented by: Sodium Chloride (0.9 % Sodium Chloride 10 Ml Syringe) 10 ml IV Q8 [facility] Last Admin: 10/30/20 15:01 Dose: 10 ml Documented by: Trazodone HCl (Trazodone Hcl 50 Mg Tablet) 50 mg PO HSP PRN PRN Reason: Insomnia A/P Assessment and plan (1) CHF exacerbation: Status: Acute (2) Type 2 diabetes mellitus: Status: Acute (3) Essential (primary) hypertension: Status: Acute (4) Hyponatremia: Status: Acute (5) Pleural effusion, left: Status: Acute Narrative A/P Narrative: Assessment and Plans: 1. CHF with exacerbation: Stays in inpatient med surg 2D echocardiogram fluid restriction 2L/day Daily weigh Intake and output Lasix 20mg IV BID Lisinopril 10mg PO daily Hold beta jb at exacerbation phase of CHF Supplemental oxygen titrate to achieve O2 sat >=92% Saline lock 2. Left large pleural effusion: s/p Diagnostic and therapeutic left thoracentesis with 850cc pleural fluid removed Fluid analysis: LDH Glucose Albumin Total protein Cytology Gram stain and culture Cell count and diff Repeat CXR this morning still show some left sided pleural effusion 3. T2DM: HgA1c Hold oral hypoglycmics Low dose sliding scale insulin AC HS Accu Chek AC HS Hypoglycemia protocol Diabetic diet 4. Essential HTN: Lasix 20mg IV BID Lisinopril 10mg PO daily Hold beta jb at exacerbation phase of CHF Hydralazine 10mg IV q4hr PRN SBP>=180 and or DBP>=110 5. Hyponatremia: RESOLVED Saline lock Repeat CMP in the AM to trend serum sodium level PT OT evaluation and treatment SCDs Time Spent With Patient Time: Total time spent is greater than 50% in coordination of care (as documented) at patient's floor/unit and/or counseling patient:
[2020-10-30] MEDS: SENNOSIDES 1 TABLET PO SCH (20:13)
[2020-10-31] MEDS: 0.9 % SODIUM CHLORIDE 10 ML SYRINGE IV SCH (05:30)
[2020-10-31] MEDS: INSULIN LISPRO 1 UNIT/0.01 ML UNIT SQ SCH ×2 (07:30→11:44)
[2020-10-31 07:54] LABS: Basophils # (Auto) 0.07 K/mcL (0.00-0.20); Basophils % (Auto) 0.8 % (0.0-2.0); Eosinophils % (Auto) 2.4 % (0.0-7.0); Hematocrit 43.1 % (36.0-48.0); Hemoglobin 13.6 g/dL (12.0-15.0); Lymphocytes # (Auto) 1.34 K/mcL (1.50-4.80); Lymphocytes % (Auto) 16.2 % (15.0-49.0); Mean Cell Volume 89.8 fL (80.0-100.0); Mean Corpuscular HGB Conc 31.6 g/dL (31.0-36.0); Mean Platelet Volume 9.2 fL (7.4-10.4); Monocytes # (Auto) 1.19 K/mcL (0.10-0.90); Monocytes % (Auto) 14.4 % (1.0-12.0); Neutrophils % (Auto) 66.2 % (38.0-78.0); Platelet Count 332 K/mcL (140-440); Red Cell Distribution Width 12.8 % (11.5-14.5); WBC 8.3 K/mcL (4.5-11.0)
[2020-10-31 08:22] LABS: ALT/SGPT 9 U/L (<40); AST/SGOT 15 U/L (<32); Albumin 3.4 gm/dL (3.2-5.2); Albumin/Globulin Ratio 1.2 (1.0-2.3); Alkaline Phosphatase 77 U/L (39-117); Bilirubin,Total 0.4 mg/dL (0.1-1.0); Blood Urea Nitrogen 26 mg/dL (8-23); Calcium 9.5 mg/dL (8.6-10.4); Carbon Dioxide 27 mmol/L (22-30); Chloride 100 mmol/L (96-108); Globulin 2.9 gm/dL (2.2-3.7); Glomerular Filtration Rate 41; Glucose 140 mg/dL (70-105)
[2020-10-31] MEDS: LISINOPRIL 10 MG TABLET PO SCH (08:39)
[2020-10-31] MEDS: DOCUSATE SODIUM 100 MG CAPSULE PO SCH (08:39)
--- NOTE | 2020-10-31 12:03 | Discharge Summary ---
Discharge Provider Provider Patient information: Note initiated : 10/31/20 at 11:58 am Service Date, if different from initiated Date: [] Patient: Alis Vogel 85 y/o F admitted on 10/29/20 for Shortness of breath. Chief Complaint: [] Date of admission: 10/29/20 14:45 Discharge date: 10/31/20 Primary care physician: PCP No Consults: 10/29/20 Consult to Physician [CONS] Stat Comment: Consulting Provider: Maynor Hardin Reason For Exam: Physician to Consult Consult to Physician [CONS] Stat Comment: Consulting Provider: [facility] Reason For Exam: Physician to Consult Consult to Physician [CONS] Stat Comment: left diagnotic and therapeutic thoracentesis Consulting Provider: Gabino Lindquist Reason For Exam: Physician to Consult Discharge Meds Discharge Medications Home Medications carvedilol [Coreg] 3.125 mg PO BID #30 tab 10/31/20 [Rx Last Taken Unknown] hydrochlorothiazide 12.5 mg PO QDAY #30 tab 10/31/20 [Rx Last Taken Unknown] lisinopril 10 mg PO DAILY #30 tab 10/31/20 [Rx Last Taken Unknown] COURSE Hospital Course Hospital course: Patient was admitted on 10/29/20 for CHF exacerbation as well as large symptomatic left pleural effusion. For CHF, supplemental oxygen was provided, and Bumex IV, Lisinopril, were also started. 2D echocardiogram was performed and showed good systolic function with LVEF 65% without evidence of diastolic dysfunction. By 10/31/20 patient was able to tolerate room air. Thoracentesis was also performed and 850cc of pleural fluid was removed from left pleural space. Pleural fluid analysis was performed and no signs of bacterial infection was noted. Final results of the cytology of the pleural fluid still pending at time of discharged. Decision was made to discharge patient home with Rx Coreg, Lisinopril, Hydrochlorothiazide sent to pharmacy. 1 week PCP follow up appointment made for her. All questions were answered prior to patient being physically discharged. Discharge diagnosis: CHF exacerbation; large left pleural effusion Time Spent with Patient Time attestation: Total time spent providing and/or coordinating discharge services: Time spent: Less than 30 minutes EXAM Constitutional Vitals: Temp Pulse Resp BP Pulse Ox 37.2 C 126 H 17 112/78 92 10/31/20 07:38 10/31/20 07:38 10/31/20 07:38 10/31/20 07:38 10/31/20 08:50 Discharge Data Data Completed and Pending Labs on day of discharge: Labs from last 24 hours 10/31/20 10/31/20 05:19 05:19 WBC 8.3 RBC 4.80 Hgb 13.6 Hct 43.1 MCV 89.8 MCH 28.3 MCHC 31.6 RDW 12.8 Plt Count 332 MPV 9.2 Neut % (Auto) 66.2 Lymph % (Auto) 16.2 [place] % (Auto) 14.4 H Eos % (Auto) 2.4 Baso % (Auto) 0.8 Lymph # (Auto) 1.34 L [place] # (Auto) 1.19 H Eos # (Auto) 0.20 Baso # (Auto) 0.07 Absolute Neutrophils 5.46 Sodium 135 Potassium 4.2 Chloride 100 Carbon Dioxide 27 Anion Gap 8.0 BUN 26 H Creatinine 1.2 H GFR Calculation 41 Glucose 140 H Calcium 9.5 Total Bilirubin 0.4 AST 15 ALT 9 Alkaline Phosphatase 77 Total Protein 6.3 Albumin 3.4 Globulin 2.9 Albumin/Globulin Ratio 1.2 Discharge Plan Patient/Caregiver Discharge Instructions Activity: as per physical therapy Diet: Regular Diet Activity Restrictions/Additional Instructions: 1 week PCP follow up appointment Prescriptions: New lisinopril 10 mg Tablet 10 mg PO DAILY Qty: 30 RF: 1 hydrochlorothiazide 12.5 mg tablet 12.5 mg PO QDAY Qty: 30 RF: 1 carvedilol [Coreg] 3.125 mg tablet 3.125 mg PO BID Qty: 30 RF: 1 Follow Up Plan Follow up with: Erum,PCP [Primary Care Provider] - Patient Disposition: Home Health Service Rehab Potential: Good Overall status at discharge: patient is back to baseline Discharge Orders: Discharge Order (Routine); Ordered 10/31/20 Ordered By: Maynor Hardin
--- NOTE | 2020-11-05 13:09 | Non-GYN Cytology Report ---
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 NG Comments The patient's recent HPI note indicating a history of breast cancer is reviewed. 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 The differential diagnosis for CK7 positive carcinomas also includes breast, lung, upper gastrointestinal and pancreatobiliary primaries and metastases from these sites cannot be entirely excluded. Please see microscopic description for full details. Clinical and radiologic correlation is required. NG Micro Description Cytologic preparations of one ThinPrep slide, one pap stained cytospin slide, one DifQuik stained cytospin slide, one [place] Giemsa stain cytospin slide and one cell block preparation reviewed. Preparations show single and small clusters of malignant cells with marked nuclear pleomorphism, prominent nucleoli and vacuolated cytoplasm. There is a background of chronic inflammatory and reactive mesothelial cells. Immunohistochemical studies are performed with adequate technical control. Cells of interest: malignant cells. Pancytokeratin: Positive. CK7: Positive. MOC31: Positive. BerEP4: Positive. ER: Weak positive. PAX-8: Patchy positive. WT1: Patchy positive. CK 5/6: Patchy positive. WI: Negative. p53: Negative. Mammaglobin: Negative. GATA3: Negative. GCDFP15: Negative. TTF-1: Negative. Napsin: Negative. CK20: Negative. CDX2: Negative. RCC: Negative. p63: Negative. Interpretation: CK 7+ carcinoma. NG Gross Description Received 25 mL red fresh fluid. IHC Disclaimer Some of the tests reported may not have been cleared or approved by the U.S. Food Drug Administration (FDA). However, the FDA has determined that such clearance or approval is not necessary. Pursuant to the requirements of CLIA, this laboratory has established and verified the accuracy and precision of all tests, and additional information about these tests is available upon request. All technical controls are adequate. Electronically Signed Concepción Rdz MD, FCAP Electronically Signed 11/05/2020 13:07
== END 2020-10-31 13:10 | disposition home health service (06) | DRG 292 ==
LOC: ED 09:33 → MEDSUR 14:45
PROVIDERS: ADMIT Internal Medicine; ATTEND Internal Medicine

== ENCOUNTER 2020-12-05 08:41 | Inpatient (IN) ==
--- NOTE | 2020-12-05 09:06 | Emergency Department Note ---
HPI General Chief complaint: Shortness of Breath/Dyspnea Stated complaint: SOB Time Seen by Provider: 12/05/20 08:52 Source: patient Mode of arrival: ambulatory Limitations: no limitations History of Present Illness HPI Narrative: Narrative: Presents emergency department for evaluation of increased shortness breath. She has history of CHF and prior pleural effusion. She reports increased difficulty breathing gradually worsening with time. Increased lower extremity swelling. Unable to lay flat due to shortness of breath. Denies chest pain. She has a cough. No fever. No other complaints. Related Data Home Medications Medication Instructions Recorded Confirmed cholecalciferol (vitamin D3) 25 25 mcg PO QDAY 11/05/20 11/06/20 mcg (1,000 unit) chewable tablet glutamine 500 mg tablet 4.5 g PO BID tab 11/05/20 11/06/20 Previous Rx's Medication Instructions Recorded carvedilol [Coreg] 3.125 mg PO BID #30 tab 10/31/20 hydrochlorothiazide 12.5 mg PO QDAY #30 tab 10/31/20 lisinopril 10 mg PO DAILY #30 tab 10/31/20 Allergies Allergy/AdvReac Type Severity Reaction Status Date / Time Penicillins Allergy Mild Unknown Verified 11/06/20 08:39 Tetanus Vaccines and Toxoid Allergy Mild Seizure Verified 11/06/20 08:39 Cephalosporins AdvReac Intermediate Diarrhea Verified 11/06/20 08:39 clindamycin AdvReac Intermediate Diarrhea Verified 11/06/20 08:39 Sulfa (Sulfonamide AdvReac Intermediate Other Verified 11/06/20 08:39 Antibiotics) ammonia AdvReac Unknown Unknown Verified 11/06/20 08:39 antipyrine AdvReac Unknown Unknown Verified 11/06/20 08:39 aztreonam AdvReac Unknown Unknown Verified 11/06/20 08:39 Bee Pollen AdvReac Unknown Unknown Verified 11/06/20 08:39 Carbapenems AdvReac Unknown Unknown Verified 11/06/20 08:39 celecoxib AdvReac Unknown Unknown Verified 11/06/20 08:39 dapsone AdvReac Unknown Unknown Verified 11/06/20 08:39 fomepizole AdvReac Unknown Unknown Verified 11/06/20 08:39 furosemide [From Lasix] AdvReac Unknown Unknown Verified 11/06/20 08:39 Influenza Virus Vaccines AdvReac Unknown Unknown Verified 11/06/20 08:39 iodine AdvReac Unknown Unknown Verified 11/06/20 08:39 Macrolide Antibiotics AdvReac Unknown Unknown Verified 11/06/20 08:39 morphine AdvReac Unknown Unknown Verified 11/06/20 08:39 NSAIDS (Non-Steroidal AdvReac Unknown Unknown Verified 11/06/20 08:39 Anti-Inflamma pimecrolimus AdvReac Unknown Unknown Verified 11/06/20 08:39 rofecoxib AdvReac Unknown Unknown Verified 11/06/20 08:39 royal jelly AdvReac Unknown Unknown Verified 11/06/20 08:39 saccharin AdvReac Unknown Unknown Verified 11/06/20 08:39 salicylates AdvReac Unknown Unknown Verified 11/06/20 08:39 sirolimus AdvReac Unknown Unknown Verified 11/06/20 08:39 Sulfinpyrazone AdvReac Unknown Unknown Verified 11/06/20 08:39 Sulfonylureas AdvReac Unknown Unknown Verified 11/06/20 08:39 sumatriptan AdvReac Unknown Unknown Verified 11/06/20 08:39 tacrolimus AdvReac Unknown Unknown Verified 11/06/20 08:39 Thiazides AdvReac Unknown Unknown Verified 11/06/20 08:39 thyroid, pork AdvReac Unknown Unknown Verified 11/06/20 08:39 "Statins" Allergy Mild GI Uncoded 11/06/20 08:39 Vaccines Allergy Mild Swelling Uncoded 11/06/20 08:39 Review of Systems ROS ROS Narrative: Narrative: As above, all other system reviewed and negative. PFSH Narrative Patient History Narrative: Narrative: Reviewed Medical/Surgical/Family History All Active Problems (Updated 12/05/20 @ 14:59 by Thierry Black MD) Respiratory failure (Acute) Pleural effusion (Acute) CHF (congestive heart failure) (Acute) Counseling regarding advance care planning and goals of care (Acute) Transition of care (Acute) Metastasis (Acute) Essential (primary) hypertension (Acute) Breast cancer (Acute) Osteopenia (Acute) Osteoporosis (Acute) Hyperthyroidism (Acute) Acute respiratory failure (Acute) Pleural effusion, left (Acute) Hyponatremia (Acute) Type 2 diabetes mellitus (Acute) CHF exacerbation (Acute) Pleural effusion (Acute) Swelling (Acute) Shortness of breath (Acute) Congestive heart failure (Acute) Medical History Breast cancer Congestive heart failure Essential (primary) hypertension Hyperthyroidism Osteopenia Osteoporosis Shortness of breath Swelling Surgical History History of appendectomy History of cataract surgery Both eyes History of tonsillectomy Family History Mother Colon cancer Dementia Diabetes Sister Dementia Diabetes Brother Diabetes Social History Smoking Status: Never smoker Alcohol Intake Frequency: does not drink Substance Use: does not use Exam Narrative Narrative: Narrative: Vital signs reviewed please see nursing documentation. General Limitations: no limitations Head Head: Present atraumatic and normocephalic Eye Eye: Present normal appearance, PERRL and EOMI ENT ENT: Present normal exam Neck Neck: Present normal inspection Respiratory Respiratory: Absent respiratory distress Extremities Extremities: Present pedal edema and pretibial edema Neurological Neurological: Present alert, oriented X3 and CN II-XII intact; Absent motor sensory deficit Psychiatric Psychiatric: Present normal affect and normal mood Skin Skin: Present warm (WNL) Course Vital Signs Vital signs: Vital Signs Temperature 97.6 F 12/05/20 08:42 Pulse Rate 96 H 12/05/20 08:42 Respiratory Rate 20 12/05/20 08:42 Blood Pressure 165/81 12/05/20 08:42 Pulse Oximetry (%) 69 L 12/05/20 08:42 Temperature 97.6 F 12/05/20 08:42 Pulse Rate 80 12/05/20 14:32 Respiratory Rate 21 12/05/20 14:32 Blood Pressure 129/80 12/05/20 14:32 Pulse Oximetry (%) 95 12/05/20 14:32 [facility] MDM Narrative Medical decision making narrative: Narrative: EKG shows sinus rhythm, no acute ischemic changes, intervals otherwise normal. I spoke with on-call hospitalist and the patient's oncologist. Case reviewed in detail over the phone. Patient will be admitted to the hospitalist service. Discussed findings with the patient and the family. Their questions were answered. They are agreeable with the plan. 1 mg Bumex IV was ordered at the request of the hospitalist. Lab Data Result diagrams: 12/05/20 09:00 12/05/20 09:00 Labs: Lab Results 12/05/20 12/05/20 12/05/20 Range/Units 09:00 09:00 09:00 WBC 13.8 H (4.5-11.0) K/mcL RBC 4.50 (4.00-5.20) M/mcL Hgb 12.9 (12.0-15.0) g/dL Hct 39.2 (36.0-48.0) % MCV 87.1 (80.0-100.0) fL MCH 28.7 (26.0-34.0) pg MCHC 32.9 (31.0-36.0) g/dL RDW 12.6 (11.5-14.5) % Plt Count 431 (140-440) K/mcL MPV 8.5 (7.4-10.4) fL Neut % (Auto) 83.2 H (38.0-78.0) % Lymph % (Auto) 3.9 L (15.0-49.0) % [place] % (Auto) 12.1 H (1.0-12.0) % Eos % (Auto) 0.4 (0.0-7.0) % Baso % (Auto) 0.4 (0.0-2.0) % Lymph # (Auto) 0.54 L (1.50-4.80) K/mcL [place] # (Auto) 1.66 H (0.10-0.90) K/mcL Eos # (Auto) 0.06 (0.00-0.70) K/mcL Baso # (Auto) 0.05 (0.00-0.20) K/mcL Absolute Neutrophils 11.46 H (1.80-8.00) K/mcL PT (11.9-14.5) sec INR (0.9-1.1) APTT (20.0-37.0) sec Sodium 126 L (133-145) mmol/L Potassium 4.5 (3.3-5.1) mmol/L Chloride 89 L (96-108) mmol/L Carbon Dioxide 23 (22-30) mmol/L Anion Gap 14.0 (8.0-16.0) BUN 28 H (8-23) mg/dL Creatinine 1.1 (0.6-1.1) mg/dL GFR Calculation 46 Glucose 404 H (70-105) mg/dL Calcium 9.7 (8.6-10.4) mg/dL Total Bilirubin 0.3 (0.1-1.0) mg/dL AST 22 (<32) U/L ALT 18 (<40) U/L Alkaline Phosphatase 102 (39-117) U/L Troponin T < 0.01 (<0.03) ng/mL NT-Pro-B Natriuret Pep 576.0 H (<450.0) pg/mL Total Protein 6.7 (5.9-8.4) gm/dL Albumin 3.3 (3.2-5.2) gm/dL Globulin 3.4 (2.2-3.7) gm/dL Albumin/Globulin Ratio 1.0 (1.0-2.3) Urine Color Urine Appearance (Clear) Urine pH (5.0-9.0) Ur Specific [place] (1.000-1.035) Urine Protein (Negative) mg/dL Urine Glucose (UA) (Negative) mg/dL Urine Ketones (Negative) mg/dL Urine Occult Blood (Negative) mg/dL Urine Nitrate (Negative) Urine Bilirubin (Negative) mg/dL Urine Urobilinogen mg/dL Ur Leukocyte Esterase (Negative) /ug Urine RBC (0-3) /hpf Urine WBC (0-4) /hpf Ur Squamous Epith Cells (0-4) /hpf Ur Transition Epith Cell (0-2) /hpf Urine Bacteria (0) /hpf Hyaline Casts (0-2) /lph Urine Mucus (None) /hpf Ur Culture Indicated? 12/05/20 12/05/20 Range/Units 10:40 14:02 WBC (4.5-11.0) K/mcL RBC (4.00-5.20) M/mcL Hgb (12.0-15.0) g/dL Hct (36.0-48.0) % MCV (80.0-100.0) fL MCH (26.0-34.0) pg MCHC (31.0-36.0) g/dL RDW (11.5-14.5) % Plt Count (140-440) K/mcL MPV (7.4-10.4) fL Neut % (Auto) (38.0-78.0) % Lymph % (Auto) (15.0-49.0) % [place] % (Auto) (1.0-12.0) % Eos % (Auto) (0.0-7.0) % Baso % (Auto) (0.0-2.0) % Lymph # (Auto) (1.50-4.80) K/mcL [place] # (Auto) (0.10-0.90) K/mcL Eos # (Auto) (0.00-0.70) K/mcL Baso # (Auto) (0.00-0.20) K/mcL Absolute Neutrophils (1.80-8.00) K/mcL PT 14.7 H (11.9-14.5) sec INR 1.1 (0.9-1.1) APTT 27.7 (20.0-37.0) sec Sodium (133-145) mmol/L Potassium (3.3-5.1) mmol/L Chloride (96-108) mmol/L Carbon Dioxide (22-30) mmol/L Anion Gap (8.0-16.0) BUN (8-23) mg/dL Creatinine (0.6-1.1) mg/dL GFR Calculation Glucose (70-105) mg/dL Calcium (8.6-10.4) mg/dL Total Bilirubin (0.1-1.0) mg/dL AST (<32) U/L ALT (<40) U/L Alkaline Phosphatase (39-117) U/L Troponin T (<0.03) ng/mL NT-Pro-B Natriuret Pep (<450.0) pg/mL Total Protein (5.9-8.4) gm/dL Albumin (3.2-5.2) gm/dL Globulin (2.2-3.7) gm/dL Albumin/Globulin Ratio (1.0-2.3) Urine Color Yellow Urine Appearance Clear (Clear) Urine pH 5.0 (5.0-9.0) Ur Specific [place] 1.015 (1.000-1.035) Urine Protein Negative (Negative) mg/dL Urine Glucose (UA) >=500 A (Negative) mg/dL Urine Ketones Negative (Negative) mg/dL Urine Occult Blood Negative (Negative) mg/dL Urine Nitrate Negative (Negative) Urine Bilirubin Negative (Negative) mg/dL Urine Urobilinogen Negative mg/dL Ur Leukocyte Esterase 250 A (Negative) /ug Urine RBC 1 (0-3) /hpf Urine WBC 15 H (0-4) /hpf Ur Squamous Epith Cells < 1 (0-4) /hpf Ur Transition Epith Cell < 1 (0-2) /hpf Urine Bacteria None (0) /hpf Hyaline Casts 1 (0-2) /lph Urine Mucus Few A (None) /hpf Ur Culture Indicated? Yes ED POC Tests ED POC Tests: MERLINE - SARS Antigen Negative Discharge Plan Patient/Caregiver Discharge Instructions Pt seen by [facility]P OPERATIONS/PA only: No Clinical Impression: Respiratory failure, Pleural effusion, CHF (congestive heart failure) Patient Disposition: Home, Self-Care Follow up with: Uzair Cordova MD [Primary Care Provider] - Prescriptions: No Action lisinopril 10 mg Tablet 10 mg PO DAILY Qty: 30 RF: 1 hydrochlorothiazide 12.5 mg tablet 12.5 mg PO QDAY Qty: 30 RF: 1 carvedilol [Coreg] 3.125 mg tablet 3.125 mg PO BID Qty: 30 RF: 1 L-Glutamine 500 mg tablet 4.5 g PO BID RF: 0 cholecalciferol (vitamin D3) [Vitamin D3] 25 mcg (1,000 unit) tablet,chewable 25 mcg PO QDAY RF: 0
--- NOTE | 2020-12-05 09:24 | XRay Report ---
INDICATION: sob TECHNIQUE: AP portable upright chest x-ray COMPARISON: None FINDINGS: There are moderate to large bilateral pleural effusions. Left pleural effusion has increased since 10/30/2020. There was slight blunting of the right costophrenic angle on 10/30/2020 indicating a very small effusion. This is increased significantly. Heart size is not assessed due to large pleural effusions. There is probable cardiomegaly. Vascularity in the upper lobes is prominent consistent with pulmonary congestion. There is peribronchial thickening which may indicate interstitial edema. No focal consolidation in either upper lobe. No evidence for pneumonia. No discrete mass. IMPRESSION: 1. Moderate to large bilateral pleural effusions, increased since 10/30/2020 2. Findings consistent with pulmonary congestion and possible interstitial edema Interpreted and Authenticated by: Josh Arceo 12/05/20
[2020-12-05 09:51] LABS: Basophils # (Auto) 0.05 K/mcL (0.00-0.20); Basophils % (Auto) 0.4 % (0.0-2.0); Eosinophils # (Auto) 0.06 K/mcL (0.00-0.70); Eosinophils % (Auto) 0.4 % (0.0-7.0); Hematocrit 39.2 % (36.0-48.0); Hemoglobin 12.9 g/dL (12.0-15.0); Lymphocytes # (Auto) 0.54 K/mcL (1.50-4.80); Lymphocytes % (Auto) 3.9 % (15.0-49.0); Mean Cell Volume 87.1 fL (80.0-100.0); Mean Corpuscular HGB Conc 32.9 g/dL (31.0-36.0); Mean Platelet Volume 8.5 fL (7.4-10.4); Monocytes # (Auto) 1.66 K/mcL (0.10-0.90); Monocytes % (Auto) 12.1 % (1.0-12.0); Neutrophils % (Auto) 83.2 % (38.0-78.0); Platelet Count 431 K/mcL (140-440); Red Cell Distribution Width 12.6 % (11.5-14.5); WBC 13.8 K/mcL (4.5-11.0)
[2020-12-05 12:17] LABS: Appearance,Urine CLEAR (Clear); Bilirubin,Urine Negative (Negative); Color,Urine YELLOW; Culture Indicated,Urine Yes; Glucose,Urine (UA) >=500 mg/dL (Negative); Ketones,Urine Negative (Negative); Leukocyte Esterase,Urine 250 /ug (Negative); Mucus,Urine FEW /hpf; Nitrate,Urine Negative (Negative); Protein,Urine Negative (Negative); Specific Gravity,Urine 1.015 (1.000-1.035); Urine Blood Negative (Negative); Urine Hyaline Cast 1 /lph (0-2); Urine RBC 1 /hpf (0-3); Urine Squamous Epithelial Cell < 1 /hpf (0-4); Urine Transitional Epi Cells < 1 /hpf (0-2); Urine WBC 15 /hpf (0-4); Urobilinogen,Urine Negative
[2020-12-05] MEDS ORDERED: BUMETANIDE 0.25 MG/ML VIAL IV ONE ×2 (13:37→13:40)
--- NOTE | 2020-12-05 14:15 | Internal Med History&Physical ---
HPI History of Present Illness Patient information: Note initiated : 12/05/20 at 2:03 pm Service Date, if different from initiated Date: [] Patient: Alis Vogel 85 y/o F admitted on for SOB . Chief Complaint: [] History of present illness: Ms. Vogel is a 85 year old F the ED with progressive shortness of breath. She is found to have a SPO2 of 69% in the triage room. She was admitted a month ago for CHF and effusions and had a thoracentesis which was positive for malignant cells. The differential for the malignant cells included breast along upper GI and pancreas biliary and it is known she does have a history of breast cancer. She had a follow-up with Dr. Woodward'briana a as well as a PET/CT which showed mediastinal adenopathy as well as omental peritoneal carcinomatosis. Case was discussed from ED with Dr. Bentley who said the patient is not a candidate for chemotherapy and when I talked to the patient states that she would not want any anyway. She has advanced stage cancer with poor prognosis. In the ED she was worked up and found to have large effusions bilateral. She was maintaining her sats on 2 L. Patient states that her edema has been stable. Her shortness of breath has been progressing over the past 6 months. She denies any chest pain or coughing. No fevers chills dysuria. Review of Systems: Pertinent positives as above. Denies headache/fever/chills/nausea/vomiting/chest or abdominal pain/cough/diarrhea. Remaining 10 point review of system reviewed negative PFSH PFSH All Active Problems Counseling regarding advance care planning and goals of care (Acute) Transition of care (Acute) Metastasis (Acute) Essential (primary) hypertension (Acute) Breast cancer (Acute) Osteopenia (Acute) Osteoporosis (Acute) Hyperthyroidism (Acute) Acute respiratory failure (Acute) Pleural effusion, left (Acute) Hyponatremia (Acute) Type 2 diabetes mellitus (Acute) CHF exacerbation (Acute) Pleural effusion (Acute) Swelling (Acute) Shortness of breath (Acute) Congestive heart failure (Acute) Medical History Breast cancer Congestive heart failure Essential (primary) hypertension Hyperthyroidism Osteopenia Osteoporosis Shortness of breath Swelling Surgical History History of appendectomy History of cataract surgery Both eyes History of tonsillectomy Family History Mother Colon cancer Dementia Diabetes Sister Dementia Diabetes Brother Diabetes Social History (Updated 11/05/20 @ 15:22 by Britney Wallace) marital status: single occupational status: retired smoking status: Never smoker alcohol intake frequency: does not drink substance use type: does not use MEDS/ALLERGIES Home Medications and Allergies Home Medications Medication Instructions Recorded Confirmed Type carvedilol [Coreg] 3.125 mg PO BID #30 tab 10/31/20 11/06/20 Rx hydrochlorothiazide 12.5 mg PO QDAY #30 tab 10/31/20 11/06/20 Rx lisinopril 10 mg PO DAILY #30 tab 10/31/20 11/06/20 Rx cholecalciferol (vitamin D3) 25 25 mcg PO QDAY 11/05/20 11/06/20 History mcg (1,000 unit) chewable tablet glutamine 500 mg tablet 4.5 g PO BID tab 11/05/20 11/06/20 History Allergies Allergy/AdvReac Type Severity Reaction Status Date / Time Penicillins Allergy Mild Unknown Verified 11/06/20 08:39 Tetanus Vaccines and Toxoid Allergy Mild Seizure Verified 11/06/20 08:39 Cephalosporins AdvReac Intermediate Diarrhea Verified 11/06/20 08:39 clindamycin AdvReac Intermediate Diarrhea Verified 11/06/20 08:39 Sulfa (Sulfonamide AdvReac Intermediate Other Verified 11/06/20 08:39 Antibiotics) ammonia AdvReac Unknown Unknown Verified 11/06/20 08:39 antipyrine AdvReac Unknown Unknown Verified 11/06/20 08:39 aztreonam AdvReac Unknown Unknown Verified 11/06/20 08:39 Bee Pollen AdvReac Unknown Unknown Verified 11/06/20 08:39 Carbapenems AdvReac Unknown Unknown Verified 11/06/20 08:39 celecoxib AdvReac Unknown Unknown Verified 11/06/20 08:39 dapsone AdvReac Unknown Unknown Verified 11/06/20 08:39 fomepizole AdvReac Unknown Unknown Verified 11/06/20 08:39 furosemide [From Lasix] AdvReac Unknown Unknown Verified 11/06/20 08:39 Influenza Virus Vaccines AdvReac Unknown Unknown Verified 11/06/20 08:39 iodine AdvReac Unknown Unknown Verified 11/06/20 08:39 Macrolide Antibiotics AdvReac Unknown Unknown Verified 11/06/20 08:39 morphine AdvReac Unknown Unknown Verified 11/06/20 08:39 NSAIDS (Non-Steroidal AdvReac Unknown Unknown Verified 11/06/20 08:39 Anti-Inflamma pimecrolimus AdvReac Unknown Unknown Verified 11/06/20 08:39 rofecoxib AdvReac Unknown Unknown Verified 11/06/20 08:39 royal jelly AdvReac Unknown Unknown Verified 11/06/20 08:39 saccharin AdvReac Unknown Unknown Verified 11/06/20 08:39 salicylates AdvReac Unknown Unknown Verified 11/06/20 08:39 sirolimus AdvReac Unknown Unknown Verified 11/06/20 08:39 Sulfinpyrazone AdvReac Unknown Unknown Verified 11/06/20 08:39 Sulfonylureas AdvReac Unknown Unknown Verified 11/06/20 08:39 sumatriptan AdvReac Unknown Unknown Verified 11/06/20 08:39 tacrolimus AdvReac Unknown Unknown Verified 11/06/20 08:39 Thiazides AdvReac Unknown Unknown Verified 11/06/20 08:39 thyroid, pork AdvReac Unknown Unknown Verified 11/06/20 08:39 "Statins" Allergy Mild GI Uncoded 11/06/20 08:39 Vaccines Allergy Mild Swelling Uncoded 11/06/20 08:39 EXAM Constitutional Vitals: Temp Pulse Resp BP Pulse Ox 97.6 F 80 23 H 128/74 98 12/05/20 08:42 12/05/20 13:53 12/05/20 13:53 12/05/20 13:53 12/05/20 13:53 Exam: General: Alert, Awake, No acute Distress, obese Eyes/N/T: EOMI, PERRL, Head/Neck: neck supple, normocephalic atraumatic CV: RRR, No murmurs, normal s1/s2 Pulm: Diminished b/l, no wheezing/rhonchi/rales Abd: soft, nontender, +BS x4 Ext: no clubbing/cyanosis, 3+ b/l LE edema Neuro: Alert, no focal deficits, moves all extremities, CN 2-12 grossly intact, symmetrical strength b/l upper/lower, sensations intact b/l upper/lower Skin: warm/dry DATA Data Completed and Pending Labs: Labs from last 24 hours 12/05/20 12/05/20 12/05/20 10:40 09:00 09:00 WBC RBC Hgb Hct MCV MCH MCHC RDW Plt Count MPV Neut % (Auto) Lymph % (Auto) [place] % (Auto) Eos % (Auto) Baso % (Auto) Lymph # (Auto) [place] # (Auto) Eos # (Auto) Baso # (Auto) Absolute Neutrophils Sodium Pending Potassium Pending Chloride Pending Carbon Dioxide Pending Anion Gap Pending BUN Pending Creatinine Pending GFR Calculation Pending Glucose Pending Calcium Pending Total Bilirubin Pending AST Pending ALT Pending Alkaline Phosphatase Pending Troponin T < 0.01 NT-Pro-B Natriuret Pep Pending Total Protein Pending Albumin Pending Globulin Pending Albumin/Globulin Ratio Pending Urine Color Yellow Urine Appearance Clear Urine pH 5.0 Ur Specific [place] 1.015 Urine Protein Negative Urine Glucose (UA) >=500 A Urine Ketones Negative Urine Occult Blood Negative Urine Nitrate Negative Urine Bilirubin Negative Urine Urobilinogen Negative Ur Leukocyte Esterase 250 A Urine RBC 1 Urine WBC 15 H Ur Squamous Epith Cells < 1 Ur Transition Epith Cell < 1 Urine Bacteria None Hyaline Casts 1 Urine Mucus Few A Ur Culture Indicated? Yes 12/05/20 09:00 WBC 13.8 H RBC 4.50 Hgb 12.9 Hct 39.2 MCV 87.1 MCH 28.7 MCHC 32.9 RDW 12.6 Plt Count 431 MPV 8.5 Neut % (Auto) 83.2 H Lymph % (Auto) 3.9 L [place] % (Auto) 12.1 H Eos % (Auto) 0.4 Baso % (Auto) 0.4 Lymph # (Auto) 0.54 L [place] # (Auto) 1.66 H Eos # (Auto) 0.06 Baso # (Auto) 0.05 Absolute Neutrophils 11.46 H Sodium Potassium Chloride Carbon Dioxide Anion Gap BUN Creatinine GFR Calculation Glucose Calcium Total Bilirubin AST ALT Alkaline Phosphatase Troponin T NT-Pro-B Natriuret Pep Total Protein Albumin Globulin Albumin/Globulin Ratio Urine Color Urine Appearance Urine pH Ur Specific [place] Urine Protein Urine Glucose (UA) Urine Ketones Urine Occult Blood Urine Nitrate Urine Bilirubin Urine Urobilinogen Ur Leukocyte Esterase Urine RBC Urine WBC Ur Squamous Epith Cells Ur Transition Epith Cell Urine Bacteria Hyaline Casts Urine Mucus Ur Culture Indicated? A/P Narrative A/P Narrative: A: *Acute hypoxic respiratory failure: 2/2 malignant pleural effusions *?diastolic CHF: last echo noted normal diastolic but E/e elevated although atria not enlarged *Malignant effusion b/l: *Metastatic cancer: unknown primary, does have h/o breast CA -follows with Dr. Bowman, not a candidate for chemotherapy *UTI: *DM: *HTN: *CKD stage III: *obesity: * P: -prn lasix -pending Thoracentesis -pt may need pleurX catheter -f/u with Dr. Bowman -wean O2 as able -SSI -Continue home BP medications -rocephin, pending UC -PT/OT -ppx: lovenox DNR Time Spent With Patient Time: Total time spent is greater than 50% in coordination of care (as documented) at patient's floor/unit and/or counseling patient:
[2020-12-05 14:18] LABS: ALT/SGPT 18 U/L (<40); AST/SGOT 22 U/L (<32); Albumin 3.3 gm/dL (3.2-5.2); Alkaline Phosphatase 102 U/L (39-117); Bilirubin,Total 0.3 mg/dL (0.1-1.0); Blood Urea Nitrogen 28 mg/dL (8-23); Calcium 9.7 mg/dL (8.6-10.4); Carbon Dioxide 23 mmol/L (22-30); Chloride 89 mmol/L (96-108); Globulin 3.4 gm/dL (2.2-3.7); Glomerular Filtration Rate 46; Glucose 404 mg/dL (70-105)
[2020-12-05 14:43] LABS: INR 1.1 (0.9-1.1); Partial Thromboplastin Time 27.7 sec (20.0-37.0); Prothrombin Time 14.7 sec (11.9-14.5)
[2020-12-05] MEDS ORDERED: IPRATROPIUM/ALBUTEROL 3 ML AMPUL.NEB NEB PRN (17:07)
[2020-12-05] MEDS ORDERED: ONDANSETRON 4 MG/2 ML VIAL IV PRN (17:07)
[2020-12-05] MEDS ORDERED: POLYETHYLENE GLYCOL 3350 17 GM PACKET PO PRN (17:07)
[2020-12-05] MEDS ORDERED: ACETAMINOPHEN 325 MG TABLET PO PRN (17:07)
[2020-12-05] MEDS ORDERED: DEXTROSE 31 GM ORAL.SUSP PO PRN (17:07)
[2020-12-05] MEDS ORDERED: POTASSIUM CHLORIDE 20 MEQ TABLET PO PRN ×2 (17:07)
[2020-12-05] MEDS ORDERED: POTASSIUM CHLORIDE 40 MEQ in DEXTROSE 5% IN WATER 500 ML IV PRN (17:07)
[2020-12-05] MEDS ORDERED: cefTRIAXone 1 GM in DEXTROSE 5% IN WATER 50 ML IV SCH (17:07)
[2020-12-05] MEDS ORDERED: MAGNESIUM SULFATE 2 GM/50 ML BAG IV PRN (17:07)
[2020-12-05] MEDS ORDERED: DEXTROSE 50% 50 ML VIAL IV PRN (17:07)
[2020-12-05] MEDS ORDERED: SENNOSIDES 1 TABLET PO PRN (17:07)
[2020-12-05] MEDS: INSULIN LISPRO 1 UNIT/0.01 ML UNIT SQ SCH ×2 (17:28→20:10)
[2020-12-05] MEDS: cefTRIAXone 1 GM VIAL IV SCH (17:29)
--- NOTE | 2020-12-05 18:41 | XRay Report ---
INDICATION: POST THORA TECHNIQUE: AP portable chest x-ray COMPARISON: Preprocedure chest x-ray dated 12/05/2020 FINDINGS:Status post ultrasound-guided left thoracentesis. 900 mL fluid removed There is significant decrease in left pleural fluid. There is a left basilar pneumothorax. Findings are most consistent with ex vacuo pneumothorax. Follow-up chest x-ray recommended. Moderate to large right pleural effusion is unchanged. IMPRESSION: Findings consistent with ex vacuo left pneumothorax following removal of 900 mL pleural fluid Interpreted and Authenticated by: Josh Arceo 12/05/20
--- NOTE | 2020-12-05 18:43 | Ultrasound Report ---
INDICATION: effusions TECHNIQUE: Informed consent was obtained. Left pleural effusion was localized with ultrasound. Routine corporate skin cleansing. 1% lidocaine was injected subcutaneously and deep A 6 Indian safety centesis set was utilized. 900 mL yossi-colored fluid removed. Patient complained of pain and procedure was terminated at this time. Post procedure chest x-ray is pending IMPRESSION: 1. Ultrasound-guided left thoracentesis 2. 900 mL yossi-colored fluid removed Interpreted and Authenticated by: Josh Arceo 12/05/20
[2020-12-05 19:52] LABS: Appearance,Pleural Fluid Hazy; Color,Pleural Fluid Yellow; Lymphocytes,Pleural Fluid 74 %; Mesothelial,Pleural Fluid 15 %; Monocytes,Pleural Fluid 7 %; Neutrophils,Pleural Fluid 4 %; Nucleated Cells,Pleural Fld 979 /cumm; RBC,Pleural Fluid <50,000 /cumm
[2020-12-05 20:05] LABS: Glucose,Pleural Fluid 255 mg/dL; LDH,Pleural Fluid 145 U/L (<122)
[2020-12-05] MEDS: DOCUSATE SODIUM 100 MG CAPSULE PO SCH (20:08)
[2020-12-05] MEDS: 0.9 % SODIUM CHLORIDE 10 ML SYRINGE IV SCH (20:09)
[2020-12-06] MEDS: 0.9 % SODIUM CHLORIDE 10 ML SYRINGE IV SCH ×3 (05:36→20:16)
[2020-12-06 06:46] LABS: Basophils # (Auto) 0.07 K/mcL (0.00-0.20); Basophils % (Auto) 0.6 % (0.0-2.0); Eosinophils # (Auto) 0.27 K/mcL (0.00-0.70); Eosinophils % (Auto) 2.1 % (0.0-7.0); Hematocrit 41.7 % (36.0-48.0); Hemoglobin 13.4 g/dL (12.0-15.0); Lymphocytes # (Auto) 0.68 K/mcL (1.50-4.80); Lymphocytes % (Auto) 5.4 % (15.0-49.0); Mean Cell Volume 87.8 fL (80.0-100.0); Mean Corpuscular HGB Conc 32.1 g/dL (31.0-36.0); Mean Platelet Volume 8.6 fL (7.4-10.4); Monocytes % (Auto) 11.9 % (1.0-12.0); Platelet Count 394 K/mcL (140-440); RBC 4.75 M/mcL (4.00-5.20); Red Cell Distribution Width 12.6 % (11.5-14.5); WBC 12.6 K/mcL (4.5-11.0)
--- NOTE | 2020-12-06 06:51 | XRay Report ---
INDICATION: f/u PTX TECHNIQUE: AP portable semiupright chest x-ray COMPARISON: Previous pre and postthoracentesis chest x-rays dated 12/05/2020 FINDINGS: Left basilar pneumothorax was demonstrated following removal of 900 mL of bloody pleural fluid. Appearance is consistent with ex vacuo left pneumothorax. No significant interval change. Left pneumothorax remains loculated at the left lung base. There is a small amount of pleural gas adjacent to the thoracic aorta. Right pleural effusion is unchanged. There is interstitial abnormality in the aerated portions of both upper lungs. This may be due to pulmonary congestion and interstitial edema. Lymphangitic spread of metastases is possible. Appearance is stable IMPRESSION: 1. Left basilar pneumothorax is unchanged since 12/05/2020. Appearance remains consistent with ex vacuo pneumothorax 2. Right pleural effusion, unchanged 3. Interstitial abnormality in both upper lungs Interpreted and Authenticated by: Josh Arceo 12/06/20
[2020-12-06 07:17] LABS: ALT/SGPT 16 U/L (<40); AST/SGOT 19 U/L (<32); Albumin 3.2 gm/dL (3.2-5.2); Alkaline Phosphatase 91 U/L (39-117); Bilirubin,Direct < 0.2 mg/dL (0-0.3); Bilirubin,Total 0.3 mg/dL (0.1-1.0); Blood Urea Nitrogen 25 mg/dL (8-23); Carbon Dioxide 29 mmol/L (22-30); Chloride 90 mmol/L (96-108); Globulin 3.3 gm/dL (2.2-3.7); Glomerular Filtration Rate 52; Glucose 152 mg/dL (70-105); Lactate Dehydrogenase 212 U/L (135-225); Phosphorous 3.5 mg/dL (2.5-4.5); Triglycerides 61 mg/dL (<150); Uric Acid 5.2 mg/dL (2.5-8.0)
--- NOTE | 2020-12-06 07:23 | Internal Med Progress Note ---
SUBJECTIVE Subjective Patient information: Note initiated : 12/06/20 at 7:15 am Service Date, if different from initiated Date: [] Patient: Alis Vogel 85 y/o F admitted on 12/05/20 for SOB . Chief Complaint: [] Interval history: History of present illness: Ms. Vogel is a 85 year old F the ED with progressive shortness of breath. She is found to have a SPO2 of 69% in the triage room. She was admitted a month ago for CHF and effusions and had a thoracentesis which was positive for malignant cells. The differential for the malignant cells included breast along upper GI and pancreas biliary and it is known she does have a history of breast cancer. She had a follow-up with Dr. Woodward'briana a as well as a PET/CT which showed mediastinal adenopathy as well as omental peritoneal carcinomatosis. Case was discussed from ED with Dr. Bentley who said the patient is not a candidate for chemotherapy and when I talked to the patient states that she would not want any anyway. She has advanced stage cancer with poor prognosis. In the ED she was worked up and found to have large effusions bilateral. She was maintaining her sats on 2 L. Patient states that her edema has been stable. Her shortness of breath has been progressing over the past 6 months. She denies any chest pain or coughing. No fevers chills dysuria. 12/06 No overnight event or new complaints. Patient has a occasional cough. Shortness of breath much better. Review of Systems: denies headache/fever/chills/nausea/vomiting/chest or abdominal pain/diarrhea. Otherwise see above. Constitutional Vitals: Vital Signs Temp Pulse Resp BP Pulse Ox 97.6 F 85 27 H 132/65 93 12/06/20 04:01 12/06/20 06:01 12/06/20 06:01 12/06/20 06:01 12/06/20 06:01 Period Temp Pulse Resp BP Sys/Campbell Pulse Ox Last 24 Hr 97.6 F-98.1 F 72-96 17-36 100-165/53-118 69-99 Intake and Output 12/05/20 12/06/20 12/06/20 21:59 05:59 13:59 Intake Total 970 Output Total 1650 400 Balance -1650 570 Weight 79.379 kg Intake & Output: Intake & Output 12/05/20 12/06/20 12/06/20 21:59 05:59 13:59 Intake Total 970 Output Total 1650 400 Balance -1650 570 Weight 79.379 kg Intake: Oral 970 Output: Urine Catheter Amount 300 Void Amount 1650 100 Other: Meal Dinner Percent of Meal Consumed 75% Urine Appearance Clear Clear Urine Color Bright Yellow Dark Yellow Urine Odor Strong Exam: General: Alert, Awake, No acute Distress, obese Eyes/N/T: EOMI, , Head/Neck: neck supple, CV: RRR, No murmurs, Pulm: Diminished b/l but much better on left, no wheezing/rhonchi/rales Abd: soft, nontender, +BS x4 Ext: no clubbing/cyanosis, 3+ b/l LE edema Neuro: Alert, no focal deficits, moves all extremities, Skin: warm/dry OBJ DATA Labs CBC & Chem 7: 12/06/20 05:15 12/06/20 05:15 Labs: Abnormal Lab Results 12/06/20 12/05/20 12/05/20 05:15 18:25 14:02 WBC 12.6 H Neut % (Auto) 80.0 H Lymph % (Auto) 5.4 L Linn % (Auto) Lymph # (Auto) 0.68 L Linn # (Auto) 1.50 H Absolute Neutrophils 10.04 H PT 14.7 H Sodium Chloride BUN Glucose Lactate Dehydrogenase NT-Pro-B Natriuret Pep Urine Glucose (UA) Ur Leukocyte Esterase Urine WBC Urine Mucus Pleural LDH 145 H 12/05/20 12/05/20 12/05/20 10:40 09:00 09:00 WBC Neut % (Auto) Lymph % (Auto) Linn % (Auto) Lymph # (Auto) Linn # (Auto) Absolute Neutrophils PT Sodium 126 L Chloride 89 L BUN 28 H Glucose 404 H Lactate Dehydrogenase 246 H NT-Pro-B Natriuret Pep 576.0 H Urine Glucose (UA) >=500 A Ur Leukocyte Esterase 250 A Urine WBC 15 H Urine Mucus Few A Pleural LDH 12/05/20 09:00 WBC 13.8 H Neut % (Auto) 83.2 H Lymph % (Auto) 3.9 L Linn % (Auto) 12.1 H Lymph # (Auto) 0.54 L Linn # (Auto) 1.66 H Absolute Neutrophils 11.46 H PT Sodium Chloride BUN Glucose Lactate Dehydrogenase NT-Pro-B Natriuret Pep Urine Glucose (UA) Ur Leukocyte Esterase Urine WBC Urine Mucus Pleural LDH Meds: Medications Acetaminophen (Acetaminophen 325 Mg Tablet) 650 mg PO Q6HP PRN PRN Reason: PAIN/FEVER > 101 Albuterol/Ipratropium (Ipratropium/Albuterol 3 Ml Ampul.Neb) 3 ml NEB Q4HP PRN PRN Reason: Shortness Of Breath Ceftriaxone Sodium (Ceftriaxone 1 Gm Vial) 1 gm IV Q24H [facility] Last Admin: 12/05/20 17:29 Dose: 1 gm Documented by: Dextrose (Dextrose 50% 50 Ml Vial) 0 ml IV UD PRN PRN Reason: Hypoglycemia Diagnostic Test (Pha) (Accu-Chek 1 Each Strip) 1 each FS [facility] Last Admin: 12/05/20 20:10 Dose: 1 each Documented by: Docusate Sodium (Docusate Sodium 100 Mg Capsule) 100 mg PO BID [facility] Last Admin: 12/05/20 20:08 Dose: Not Given Documented by: Enoxaparin Sodium (Enoxaparin 40 Mg/0.4 Ml Syringe) 40 mg SQ DAILY [facility] Glucose (Dextrose 31 Gm Oral.Susp) 15 gm PO PRN PRN PRN Reason: Hypoglycemia Potassium Chloride 40 meq/ (Dextrose) 520 mls @ 130 mls/hr IV UD PRN PRN Reason: Potassium < 3 Magnesium Sulfate (Magnesium Sulfate) 2 gm in 50 mls @ 50 mls/hr IV UD PRN PRN Reason: Magnesium </= 1.6 Insulin Human Lispro (Insulin Lispro 1 Unit/0.01 Ml Unit) 0 unit SQ [facility]; Protocol Last Admin: 12/05/20 20:10 Dose: 6 units Documented by: Ondansetron HCl (Ondansetron 4 Mg/2 Ml Vial) 4 mg IV Q4HP PRN PRN Reason: Nausea And Vomiting Polyethylene Glycol (Polyethylene Glycol 3350 17 Gm Packet) 17 gm PO DAILYP PRN PRN Reason: Constipation Potassium Chloride (Potassium Chloride 20 Meq Tablet) 40 meq PO UD PRN PRN Reason: Potssium is 3-3.5 Potassium Chloride (Potassium Chloride 20 Meq Tablet) 40 meq PO UD PRN PRN Reason: Potassium < 3 Senna (Sennosides 1 Tablet) 2 tab PO DAILYP PRN PRN Reason: Constipation Sodium Chloride (0.9 % Sodium Chloride 10 Ml Syringe) 10 ml IV Q8 [facility] Last Admin: 12/06/20 05:36 Dose: 10 ml Documented by: A/P Narrative A/P Narrative: A: *Acute hypoxic respiratory failure: 2/2 malignant pleural effusions -on 3L NC *Malignant effusion b/l: s/p Left thora(900cc) -s/p Left thora(900cc) on 12/05 *Left base ex vacuo PTX: *Metastatic cancer: unknown primary, does have h/o breast CA -follows with Dr. Bowman, not a candidate for chemotherapy *?diastolic CHF: last echo noted normal diastolic but E/e elevated although atria not enlarged *UTI: *DM: *HTN: *CKD stage III: *obesity: *HYponatermia: improved P: -IV bumex today -unable to perform thora on right side d/t left PTX -likely needs pleurX catheter, not done here, f/u with Dr. Bowman -f/u with Dr. Bowman -wean O2 as able, wean -SSI -Continue home BP medications -rocephin, pending UC -PT/OT -ppx: lovenox DNR Time Spent With Patient Time: Total time spent is greater than 50% in coordination of care (as documented) at patient's floor/unit and/or counseling patient: QUALITY VTE Deep Vein Thrombosis/Pulmonary Embolism Present on Admission: No
[2020-12-06] MEDS: INSULIN LISPRO 1 UNIT/0.01 ML UNIT SQ SCH ×4 (08:00→20:18)
[2020-12-06] MEDS ORDERED: HYDROCHLOROTHIAZIDE 12.5 MG CAPSULE PO SCH (09:00)
[2020-12-06] MEDS: DOCUSATE SODIUM 100 MG CAPSULE PO SCH ×2 (10:14→20:19)
[2020-12-06] MEDS: ENOXAPARIN 40 MG/0.4 ML SYRINGE SQ SCH (10:14)
[2020-12-06] MEDS: BUMETANIDE 0.25 MG/ML VIAL IV SCH ×2 (10:14→20:16)
[2020-12-06] MEDS: cefTRIAXone 1 GM VIAL IV SCH (10:27)
[2020-12-06] MEDS: CARVEDILOL 3.125 MG TABLET PO SCH ×2 (12:40→18:04)
--- NOTE | 2020-12-06 13:50 | EKG ---
[facility] Test Date: 2020-12-05 Pat Name: Alis Vogel Department: ED Room: Gender: Female [employer] Person: : 1935 Requested By: Thierry Black Order Number: [id number] Reading MD: Carlos Avelar M.D. Measurements Intervals [place] Rate: 88 P: 4 OR: 158 QRS: -5 QRSD: 98 T: 26 QT: 356 QTc: 431 Interpretive Statements Sinus rhythm Anteroseptal infarct, age indeterminate Baseline wander in lead(s) V1,V5 No prior tracing for comparison. Electronically Signed On 12-06-2020 13:49:50 PDT by Carlos Avelar M.D. /store/M0/[id number]/ecg/[id number]
[2020-12-06] MEDS ORDERED: METOPROLOL TARTRATE 5 MG/5 ML VIAL IV PRN (14:32)
[2020-12-06] MEDS ORDERED: METOPROLOL TARTRATE 5 MG/5 ML VIAL IV ONE (14:33)
[2020-12-06] MEDS ORDERED: AMIODARONE 150 MG in DEXTROSE 5% IN WATER 50 ML IV ONE (15:49)
[2020-12-06] MEDS ORDERED: AMIODARONE 360 MG in PREMIX 1 BAG IV SCH ×2 (18:00→23:59)
[2020-12-07] MEDS: 0.9 % SODIUM CHLORIDE 10 ML SYRINGE IV SCH ×3 (05:17→21:42)
[2020-12-07 06:43] LABS: Basophils # (Auto) 0.05 K/mcL (0.00-0.20); Basophils % (Auto) 0.4 % (0.0-2.0); Eosinophils # (Auto) 0.25 K/mcL (0.00-0.70); Eosinophils % (Auto) 2.1 % (0.0-7.0); Hematocrit 41.2 % (36.0-48.0); Hemoglobin 12.9 g/dL (12.0-15.0); Lymphocytes # (Auto) 1.12 K/mcL (1.50-4.80); Lymphocytes % (Auto) 9.5 % (15.0-49.0); Mean Cell Volume 90.2 fL (80.0-100.0); Mean Corpuscular HGB Conc 31.3 g/dL (31.0-36.0); Mean Platelet Volume 8.3 fL (7.4-10.4); Monocytes # (Auto) 1.75 K/mcL (0.10-0.90); Monocytes % (Auto) 14.8 % (1.0-12.0); Neutrophils % (Auto) 73.2 % (38.0-78.0); Platelet Count 368 K/mcL (140-440); RBC 4.57 M/mcL (4.00-5.20); Red Cell Distribution Width 12.7 % (11.5-14.5); WBC 11.8 K/mcL (4.5-11.0)
[2020-12-07 06:59] LABS: ALT/SGPT 13 U/L (<40); AST/SGOT 20 U/L (<32); Albumin 2.8 gm/dL (3.2-5.2); Albumin/Globulin Ratio 0.9 (1.0-2.3); Alkaline Phosphatase 80 U/L (39-117); Bilirubin,Direct < 0.2 mg/dL (0-0.3); Bilirubin,Total 0.2 mg/dL (0.1-1.0); Blood Urea Nitrogen 29 mg/dL (8-23); Calcium 9.4 mg/dL (8.6-10.4); Carbon Dioxide 26 mmol/L (22-30); Chloride 91 mmol/L (96-108); Globulin 3.2 gm/dL (2.2-3.7); Glomerular Filtration Rate 52; Glucose 164 mg/dL (70-105); Lactate Dehydrogenase 264 U/L (135-225); Phosphorous 3.5 mg/dL (2.5-4.5); Triglycerides 72 mg/dL (<150); Uric Acid 5.7 mg/dL (2.5-8.0)
--- NOTE | 2020-12-07 07:39 | Internal Med Progress Note ---
SUBJECTIVE Subjective Patient information: Note initiated : 12/07/20 at 7:36 am Service Date, if different from initiated Date: [] Patient: Alis Vogel 85 y/o F admitted on 12/05/20 for SOB . Chief Complaint: [] Interval history: History of present illness: Ms. Vogel is a 85 year old F the ED with progressive shortness of breath. She is found to have a SPO2 of 69% in the triage room. She was admitted a month ago for CHF and effusions and had a thoracentesis which was positive for malignant cells. The differential for the malignant cells included breast along upper GI and pancreas biliary and it is known she does have a history of breast cancer. She had a follow-up with Dr. Woodward'briana a as well as a PET/CT which showed mediastinal adenopathy as well as omental peritoneal carcinomatosis. Case was discussed from ED with Dr. Bentley who said the patient is not a candidate for chemotherapy and when I talked to the patient states that she would not want any anyway. She has advanced stage cancer with poor prognosis. In the ED she was worked up and found to have large effusions bilateral. She was maintaining her sats on 2 L. Patient states that her edema has been stable. Her shortness of breath has been progressing over the past 6 months. She denies any chest pain or coughing. No fevers chills dysuria. 12/06 No overnight event or new complaints. Patient has a occasional cough. Shortness of breath much better. 12/07 Run of A. fib yesterday converted back to sinus on amiodarone drip. No history of A. fib. On 1-2 L of nasal cannula. No new complaints. Follow-up chest x-ray. Edema improving in the legs Review of Systems: denies headache/fever/chills/nausea/vomiting/chest or abdominal pain/diarrhea. Otherwise see above. Constitutional Vitals: Vital Signs Temp Pulse Resp BP Pulse Ox 97.6 F 99 H 24 H 123/56 94 12/07/20 04:00 12/06/20 14:00 12/07/20 01:30 12/07/20 06:02 12/07/20 06:02 Period Temp Pulse Resp BP Sys/Campbell Pulse Ox Last 24 Hr 97.6 F-98.6 F 88-99 24-26 85-143/41-95 86-97 Intake and Output 12/06/20 12/07/20 12/07/20 21:59 05:59 13:59 Intake Total 53 620 Output Total 400 600 Balance -347 20 Weight 78.698 kg Intake & Output: Intake & Output 12/06/20 12/07/20 12/07/20 21:59 05:59 13:59 Intake Total 53 620 Output Total 400 600 Balance -347 20 Weight 78.698 kg Intake: IV 53 200 Cordarone 150 mg In Dextrose 5% 53 in Water 50 ml @ 300 mls/hr IV ONCE ONE Rx#:[id number] Nexterone 360 mg In Premix 1 200 Bag @ 1 MG/MIN 33.333 mls/hr IV .Q6H [facility] Rx#:[id number] Oral 420 Output: Void Amount 400 600 Other: Urine Appearance Clear Clear Urine Color Bright Yellow Dark Yellow Urine Odor Normal Exam: General: Alert, Awake, No acute Distress, obese Eyes/N/T: EOMI, , Head/Neck: neck supple, CV: RRR, No murmurs, Pulm: Diminished b/l but much better on left, no wheezing/rhonchi/rales Abd: soft, nontender, +BS x4 Ext: no clubbing/cyanosis, 2+ b/l LE ankl edema - improved Neuro: Alert, no focal deficits, moves all extremities, Skin: warm/dry OBJ DATA Labs CBC & Chem 7: 12/07/20 05:04 12/07/20 05:04 Labs: Abnormal Lab Results 12/07/20 12/07/20 12/06/20 05:04 05:04 05:15 WBC 11.8 H Neut % (Auto) Lymph % (Auto) 9.5 L Morrison % (Auto) 14.8 H Lymph # (Auto) 1.12 L Morrison # (Auto) 1.75 H Absolute Neutrophils 8.65 H PT Sodium 128 L 130 L Chloride 91 L 90 L BUN 29 H 25 H Glucose 164 H 152 H Lactate Dehydrogenase 264 H NT-Pro-B Natriuret Pep Albumin 2.8 L Albumin/Globulin Ratio 0.9 L Urine Glucose (UA) Ur Leukocyte Esterase Urine WBC Urine Mucus Pleural LDH 12/06/20 12/05/20 12/05/20 05:15 18:25 14:02 WBC 12.6 H Neut % (Auto) 80.0 H Lymph % (Auto) 5.4 L Morrison % (Auto) Lymph # (Auto) 0.68 L Morrison # (Auto) 1.50 H Absolute Neutrophils 10.04 H PT 14.7 H Sodium Chloride BUN Glucose Lactate Dehydrogenase NT-Pro-B Natriuret Pep Albumin Albumin/Globulin Ratio Urine Glucose (UA) Ur Leukocyte Esterase Urine WBC Urine Mucus Pleural LDH 145 H 12/05/20 12/05/20 12/05/20 10:40 09:00 09:00 WBC Neut % (Auto) Lymph % (Auto) Morrison % (Auto) Lymph # (Auto) [place] # (Auto) Absolute Neutrophils PT Sodium 126 L Chloride 89 L BUN 28 H Glucose 404 H Lactate Dehydrogenase 246 H NT-Pro-B Natriuret Pep 576.0 H Albumin Albumin/Globulin Ratio Urine Glucose (UA) >=500 A Ur Leukocyte Esterase 250 A Urine WBC 15 H Urine Mucus Few A Pleural LDH 12/05/20 09:00 WBC 13.8 H Neut % (Auto) 83.2 H Lymph % (Auto) 3.9 L Morrison % (Auto) 12.1 H Lymph # (Auto) 0.54 L Morrison # (Auto) 1.66 H Absolute Neutrophils 11.46 H PT Sodium Chloride BUN Glucose Lactate Dehydrogenase NT-Pro-B Natriuret Pep Albumin Albumin/Globulin Ratio Urine Glucose (UA) Ur Leukocyte Esterase Urine WBC Urine Mucus Pleural LDH Meds: Medications Acetaminophen (Acetaminophen 325 Mg Tablet) 650 mg PO Q6HP PRN PRN Reason: PAIN/FEVER > 101 Albuterol/Ipratropium (Ipratropium/Albuterol 3 Ml Ampul.Neb) 3 ml NEB Q4HP PRN PRN Reason: Shortness Of Breath Carvedilol (Carvedilol 3.125 Mg Tablet) 3.125 mg PO BIDCC [facility] Last Admin: 12/06/20 18:04 Dose: 3.125 mg Documented by: Ceftriaxone Sodium (Ceftriaxone 1 Gm Vial) 1 gm IV Q24H [facility] Last Admin: 12/06/20 10:27 Dose: 1 gm Documented by: Dextrose (Dextrose 50% 50 Ml Vial) 0 ml IV UD PRN PRN Reason: Hypoglycemia Diagnostic Test (Pha) (Accu-Chek 1 Each Strip) 1 each FS ACHS [facility] Last Admin: 12/07/20 07:19 Dose: 1 each Documented by: Docusate Sodium (Docusate Sodium 100 Mg Capsule) 100 mg PO BID [facility] Last Admin: 12/06/20 20:19 Dose: Not Given Documented by: Enoxaparin Sodium (Enoxaparin 40 Mg/0.4 Ml Syringe) 40 mg SQ DAILY [facility] Last Admin: 12/06/20 10:14 Dose: 40 mg Documented by: Glucose (Dextrose 31 Gm Oral.Susp) 15 gm PO PRN PRN PRN Reason: Hypoglycemia Hydrochlorothiazide (Hydrochlorothiazide 12.5 Mg Capsule) 12.5 mg PO DAILY [facility] Last Admin: 12/06/20 13:32 Dose: 12.5 mg Documented by: Potassium Chloride 40 meq/ (Dextrose) 520 mls @ 130 mls/hr IV UD PRN PRN Reason: Potassium < 3 Magnesium Sulfate (Magnesium Sulfate) 2 gm in 50 mls @ 50 mls/hr IV UD PRN PRN Reason: Magnesium </= 1.6 AMIODARONE 360 mg/ Premix 200 mls @ 16.667 mls/hr IV .Q12H [facility]; Protocol Stop: 12/07/20 17:58 Last Admin: 12/06/20 23:58 Dose: 0.5 mg/min, 16.667 mls/hr Documented by: Insulin Human Lispro (Insulin Lispro 1 Unit/0.01 Ml Unit) 0 unit SQ ACHS [facility]; Protocol Last Admin: 12/06/20 20:18 Dose: 6 units Documented by: Metoprolol Tartrate (Metoprolol Tartrate 5 Mg/5 Ml Vial) 5 mg IV Q2HP PRN PRN Reason: Tachyarrhythmias HR>110 Ondansetron HCl (Ondansetron 4 Mg/2 Ml Vial) 4 mg IV Q4HP PRN PRN Reason: Nausea And Vomiting Polyethylene Glycol (Polyethylene Glycol 3350 17 Gm Packet) 17 gm PO DAILYP PRN PRN Reason: Constipation Potassium Chloride (Potassium Chloride 20 Meq Tablet) 40 meq PO UD PRN PRN Reason: Potssium is 3-3.5 Potassium Chloride (Potassium Chloride 20 Meq Tablet) 40 meq PO UD PRN PRN Reason: Potassium < 3 Senna (Sennosides 1 Tablet) 2 tab PO DAILYP PRN PRN Reason: Constipation Sodium Chloride (0.9 % Sodium Chloride 10 Ml Syringe) 10 ml IV Q8 [facility] Last Admin: 12/07/20 05:17 Dose: 10 ml Documented by: A/P Narrative A/P Narrative: A: *Acute hypoxic respiratory failure: 2/2 malignant pleural effusions -on 2 NC *Malignant effusion b/l: s/p Left thora(900cc) -s/p Left thora(900cc) on 12/05 *Left base ex vacuo PTX: *Metastatic cancer: unknown primary, does have h/o breast CA -follows with Dr. Bowman, not a candidate for chemotherapy *?diastolic CHF: last echo noted normal diastolic but E/e elevated although atria not enlarged *UTI: *DM: *HTN: *CKD stage III: *obesity: *HYponatermia: improved *run of afib 12/06 converted back with amio P: -IV bumex -unable to perform thora on right side d/t left PTX -likely needs pleurX catheter, not done here, f/u with Dr. Bowman -f/u with Dr. Bowman -wean O2 as able, wean -SSI -changed home coreg to lopressor for low normal bp, stop hctz for hyponatremia -PT/OT -ppx: lovenox DNR Time Spent With Patient Time: Total time spent is greater than 50% in coordination of care (as documented) at patient's floor/unit and/or counseling patient: QUALITY VTE Deep Vein Thrombosis/Pulmonary Embolism Present on Admission: No
[2020-12-07] MEDS ORDERED: ALBUMIN HUMAN 12.5 GM/50 ML BAG IV ONE ×2 (07:40→16:30)
[2020-12-07] MEDS ORDERED: BUMETANIDE 0.25 MG/ML VIAL IV ONE ×2 (07:40→16:30)
[2020-12-07] MEDS: INSULIN LISPRO 1 UNIT/0.01 ML UNIT SQ SCH ×4 (07:57→21:42)
[2020-12-07] MEDS: ENOXAPARIN 40 MG/0.4 ML SYRINGE SQ SCH (08:29)
[2020-12-07] MEDS: DOCUSATE SODIUM 100 MG CAPSULE PO SCH ×2 (08:29→21:39)
--- NOTE | 2020-12-07 08:36 | XRay Report ---
INDICATION: f/u PTX TECHNIQUE: AP portable upright chest x-ray COMPARISON: Previous chest x-rays dated 12/06/2020, 12/05/2020 FINDINGS:Persistent left basilar pneumothorax consistent with ex vacuo pneumothorax. There has been some reaccumulation of left pleural fluid. Right pleural effusion is unchanged. This remains moderate to large. No new pulmonary parenchymal infiltrate. No change in heart size. IMPRESSION: 1. Persistent left basilar pneumothorax remains consistent with ex vacuo pneumothorax. There is been some reaccumulation of left pleural effusion since 12/05/2020 2. Persistent right pleural effusion Interpreted and Authenticated by: Josh Arceo 12/07/20
[2020-12-07] MEDS: METOPROLOL TARTRATE 25 MG TABLET PO SCH ×2 (09:11→21:41)
--- NOTE | 2020-12-07 09:51 | Discharge Summary ---
Discharge Provider Provider Patient information: Note initiated : 12/07/20 at 9:47 am Service Date, if different from initiated Date: [] Patient: Alis Vogel 85 y/o F admitted on 12/05/20 for SOB . Chief Complaint: [] Date of admission: 12/05/20 17:06 Discharge date: 12/08/20 Primary care physician: Uzair oCrdova MD Consults: 12/05/20 Consult to Physician [CONS] Stat Comment: Consulting Provider: Jesus Christianson Reason For Exam: Physician to Consult Discharge Meds Discharge Medications Home Medications cholecalciferol (vitamin D3) 25 mcg (1,000 unit) chewable tablet 25 mcg PO QDAY 11/05/20 [History Confirmed 12/05/20 Last Taken Unknown] glutamine 500 mg tablet 4.5 g PO BID tab 11/05/20 [History Confirmed 12/05/20 Last Taken Unknown] bumetanide 1 mg PO QDAY #30 tab 12/07/20 [Rx Last Taken Unknown] lisinopril 5 mg PO DAILY #1 tab 12/07/20 [Rx Last Taken Unknown] metoprolol tartrate 12.5 mg PO BID #30 tab 12/07/20 [Rx Last Taken Unknown] COURSE Hospital Course Hospital course: Interval history: History of present illness: Ms. Vogel is a 85 year old F the ED with progressive shortness of breath. She is found to have a SPO2 of 69% in the triage room. She was admitted a month ago for CHF and effusions and had a thoracentesis which was positive for malignant cells. The differential for the malignant cells included breast along upper GI and pancreas biliary and it is known she does have a history of breast cancer. She had a follow-up with Dr. Grace dill as well as a PET/CT which showed mediastinal adenopathy as well as omental peritoneal carcinomatosis. Case was discussed from ED with Dr. Bentley who said the patient is not a candidate for chemotherapy and when I talked to the patient states that she would not want any anyway. She has advanced stage cancer with poor prognosis. In the ED she was worked up and found to have large effusions bilateral. She was maintaining her sats on 2 L. Patient states that her edema has been stable. Her shortness of breath has been progressing over the past 6 months. She denies any chest pain or coughing. No fevers chills dysuria. 12/06 No overnight event or new complaints. Patient has a occasional cough. Shortness of breath much better. 12/07 Run of A. fib yesterday converted back to sinus on amiodarone drip. No history of A. fib. On 1-2 L of nasal cannula. No new complaints. Follow-up chest x-ray. Edema improving in the legs 12/08 Patient doing well. Stable for discharge. Patient will need close follow-up with Dr. Bowman and likely needs Pleurx catheter. *Changed Coreg to Lopressor for low normal blood pressure and decreased dose of lisinopril *stopped hydrochlorothiazide for hyponatremia and added bumex daily A: *Acute hypoxic respiratory failure: 2/2 malignant pleural effusions *Malignant effusion b/l: s/p Left thora(900cc) -s/p Left thora(900cc) on 12/05 *Left base ex vacuo PTX: *Metastatic cancer: unknown primary, does have h/o breast CA -follows with Dr. Bowman, not a candidate for chemotherapy *?diastolic CHF: last echo noted normal diastolic but E/e elevated although atria not enlarged *DM: *HTN: *CKD stage III: *obesity: *HYponatermia: improved Discharge diagnosis: Acute hypoxic respiratory failure malignant pleural effusions pneumothorax Secondary discharge diagnosis: Metastatic cancer of unknown primary diabetes obesity hypertension chronic kidney disease hyponatremia Time Spent with Patient Time attestation: Total time spent providing and/or coordinating discharge services: Time spent: Greater than 30 minutes EXAM Constitutional Vitals: Temp Pulse Resp BP Pulse Ox 97.6 F 99 H 24 H 123/56 94 12/07/20 04:00 12/06/20 14:00 12/07/20 01:30 12/07/20 06:02 12/07/20 06:02 Discharge Data Data Completed and Pending Labs on day of discharge: Labs from last 24 hours 12/07/20 12/07/20 05:04 05:04 WBC 11.8 H RBC 4.57 Hgb 12.9 Hct 41.2 MCV 90.2 MCH 28.2 MCHC 31.3 RDW 12.7 Plt Count 368 MPV 8.3 Neut % (Auto) 73.2 Lymph % (Auto) 9.5 L Smyth % (Auto) 14.8 H Eos % (Auto) 2.1 Baso % (Auto) 0.4 Lymph # (Auto) 1.12 L S[place]th # (Auto) 1.75 H Eos # (Auto) 0.25 Baso # (Auto) 0.05 Absolute Neutrophils 8.65 H Sodium 128 L Potassium 4.0 Chloride 91 L Carbon Dioxide 26 Anion Gap 11.0 BUN 29 H Creatinine 1.0 GFR Calculation 52 Glucose 164 H Uric Acid 5.7 Calcium 9.4 Phosphorus 3.5 Magnesium 2.1 Total Bilirubin 0.2 Direct Bilirubin < 0.2 GGT 22 AST 20 ALT 13 Alkaline Phosphatase 80 Lactate Dehydrogenase 264 H Total Protein 6.0 Albumin 2.8 L Globulin 3.2 Albumin/Globulin Ratio 0.9 L Triglycerides 72 Preliminary micro results at discharge 12/05/20 10:40 - Preliminary Urine - Clean Void Mid-Stream Discharge Plan Patient/Caregiver Discharge Instructions Activity: increase activity as tolerated Diet: Consistent Carbohydrate Prescriptions: New metoprolol tartrate 25 mg Tablet 12.5 mg PO BID Qty: 30 RF: 0 bumetanide 1 mg tablet 1 mg PO QDAY Qty: 30 RF: 0 Continued L-Glutamine 500 mg tablet 4.5 g PO BID RF: 0 cholecalciferol (vitamin D3) [Vitamin D3] 25 mcg (1,000 unit) tablet,chewable 25 mcg PO QDAY RF: 0 Changed lisinopril 10 mg Tablet 5 mg PO DAILY Qty: 1 RF: 1 Discontinued hydrochlorothiazide 12.5 mg tablet 12.5 mg PO QDAY Qty: 30 RF: 1 carvedilol [Coreg] 3.125 mg tablet 3.125 mg PO BID Qty: 30 RF: 1 Follow Up Plan Follow up with: Uzair Cordova MD [Primary Care Provider] - Allan Bowman MD [Physician] - (PleurX catheter) Patient Disposition: Home, Self-Care Prognosis: Undetermined Overall status at discharge: patient is progressing back to baseline Discharge Orders: Discharge Order (Routine); Ordered 12/08/20 Ordered By: Jesus Christianson [facility] VTE Deep Vein Thrombosis/Pulmonary Embolism Present on Admission: No
[2020-12-08] MEDS: 0.9 % SODIUM CHLORIDE 10 ML SYRINGE IV SCH (05:18)
[2020-12-08 07:02] LABS: Blood Urea Nitrogen 34 mg/dL (8-23); Calcium 9.7 mg/dL (8.6-10.4); Carbon Dioxide 30 mmol/L (22-30); Chloride 90 mmol/L (96-108); Glomerular Filtration Rate 46; Glucose 118 mg/dL (70-105)
[2020-12-08] MEDS: INSULIN LISPRO 1 UNIT/0.01 ML UNIT SQ SCH (07:42)
[2020-12-08] MEDS: METOPROLOL TARTRATE 25 MG TABLET PO SCH (07:45)
[2020-12-08] MEDS: DOCUSATE SODIUM 100 MG CAPSULE PO SCH (07:45)
[2020-12-08] MEDS: ENOXAPARIN 40 MG/0.4 ML SYRINGE SQ SCH (07:45)
[2020-12-08] MEDS ORDERED: DEXTROSE 31 GM ORAL.SUSP PO PRN (10:22)
[2020-12-08] MEDS ORDERED: METOPROLOL TARTRATE 5 MG/5 ML VIAL IV PRN (10:22)
[2020-12-08] MEDS ORDERED: SENNOSIDES 1 TABLET PO PRN (10:22)
[2020-12-08] MEDS ORDERED: MAGNESIUM SULFATE 2 GM/50 ML BAG IV PRN (10:22)
[2020-12-08] MEDS ORDERED: POTASSIUM CHLORIDE 20 MEQ TABLET PO PRN ×2 (10:22)
[2020-12-08] MEDS ORDERED: POTASSIUM CHLORIDE 40 MEQ in DEXTROSE 5% IN WATER 500 ML IV PRN (10:22)
[2020-12-08] MEDS ORDERED: POLYETHYLENE GLYCOL 3350 17 GM PACKET PO PRN (10:22)
[2020-12-08] MEDS ORDERED: ACETAMINOPHEN 325 MG TABLET PO PRN (10:22)
[2020-12-08] MEDS ORDERED: ONDANSETRON 4 MG/2 ML VIAL IV PRN (10:22)
[2020-12-08] MEDS ORDERED: DEXTROSE 50% 50 ML VIAL IV PRN (10:22)
[2020-12-08] MEDS ORDERED: IPRATROPIUM/ALBUTEROL 3 ML AMPUL.NEB NEB PRN (10:22)
[2020-12-08] MEDS ORDERED: INSULIN LISPRO 1 UNIT/0.01 ML UNIT SQ SCH (11:30)
[2020-12-08] MEDS ORDERED: 0.9 % SODIUM CHLORIDE 10 ML SYRINGE IV SCH (14:00)
--- NOTE | 2020-12-08 16:50 | EKG ---
[facility] Test Date: 2020-12-06 Pat Name: Alis Vogel Department: ICU Room: 120A Gender: Female [employer]: : 1935 Requested By: Jesus Christianson Order Number: [id number] Reading MD: Carlos Avelar M.D. Measurements Intervals [place] Rate: 141 P: NE: QRS: 0 QRSD: 68 T: QT: 292 QTc: 447 Interpretive Statements ATRIAL FIBRILLATION-RAPID RESPONSE POOR R WAVE PROGRESSION, ANTERIOR LEADS REPOLARIZATION ABNORMALITY, PROB RATE RELATED Since previous ECG of 12-05-20 ATRIAL FIBRILLATION/RVR Electronically Signed On 12-08-2020 16:50:12 PDT by Carlos Avelar M.D. /[facility]/M0/[id number]
[2020-12-08] MEDS ORDERED: METOPROLOL TARTRATE 25 MG TABLET PO SCH (21:00)
[2020-12-08] MEDS ORDERED: DOCUSATE SODIUM 100 MG CAPSULE PO SCH (21:00)
[2020-12-09] MEDS ORDERED: ENOXAPARIN 40 MG/0.4 ML SYRINGE SQ SCH (09:00)
== END 2020-12-08 14:25 | disposition home or self-care (01) | DRG 189 ==
LOC: ED 08:41 → ICU 16:55 → MEDSUR 12-08 10:15
PROVIDERS: ADMIT Internal Medicine; ATTEND Internal Medicine